=== PATIENT | female | born 1935 | race Caucasian/White ===

== ENCOUNTER 2016-07-13 12:52 | Inpatient (IN) | payer OTHER, MEDICAID ==
[~2016-07-13] VITALS: Ht 154.9 cm; Wt 106.4 kg
[2016-07-13 12:52] VITALS: BP 154/101; PULSE 121; RESP 22; TEMP 98.7; O2SAT 92
[~2016-07-13 12:52] MED LIST: APIX2.5T PO; APIX5TAB PO; ATOR10TA68 PO; CHOL100028 PO; FAMO40TA7 PO; FURO40TA5 PO; LEVE500T13 PO; LISI-600 PO; METO-442 PO; METR500T PO; NITSL SL; PENT400T2 PO; POTA20TA83 PO; RIFA550T5 PO; TEMA15CA51 PO
[2016-07-13] MEDS ORDERED: LEVOFLOXACIN 500 MG TABLET PO ONE (14:00)
[2016-07-13] MEDS ORDERED: FAMO40OR3 PO (14:17)
[2016-07-13] MEDS ORDERED: FURO20TA4 PO (14:17)
[2016-07-13] MEDS ORDERED: ATOR10TA68 PO (14:17)
[2016-07-13] MEDS ORDERED: PENT400T2 PO (14:17)
[2016-07-13] MEDS ORDERED: APIX5TAB PO (14:17)
[2016-07-13] MEDS ORDERED: LISI10TA5 PO (14:17)
[2016-07-13] MEDS ORDERED: LEVE500S PO (14:17)
[2016-07-13 14:22] LABS: BLOOD GAS COHb% 1.3 % (0.5-1.5); BLOOD GAS HHB 8.1 % (0.0-6.0)
[2016-07-13 14:40] LABS: MEAN CORPUSCULAR HGB CONC 33 % (32-36); MEAN CORPUSCULAR VOLUME 89 fL (79.0-98.0); WHITE BLOOD COUNT (AUTO) 7.4 K/uL (4.8-10.8)
[2016-07-13 14:51] LABS: BASOPHILS # (AUTO) 0.1 K/uL (0.0-0.2); BASOPHILS % (AUTO) 1.4 % (0.0-2.0); HEMATOCRIT 33.1 % (36-48); HEMOGLOBIN 10.9 g/dL (12.0-16.0); LYMPHOCYTES # (AUTO) 0.3 K/uL (1.0-5.5); LYMPHOCYTES % (AUTO) 4.5 % (20.5-51.5); MEAN CORPUSCULAR HEMOGLOBIN 29 pg (27-31); MONOCYTES # (AUTO) 0.3 K/uL (0.0-1.0); MONOCYTES % (AUTO) 3.4 % (1.7-9.3); NEUTROPHILS # (AUTO) 6.7 K/uL (1.8-7.7); NEUTROPHILS % (AUTO) 90.7 % (40.0-70.0); PLATELET COUNT (AUTO) 157 K/uL (130-430); RED BLOOD CELL COUNT(AUTO) 3.73 MIL/uL (4.2-6.2); RED CELL DISTRIBUTION WIDTH 16.9 % (9.0-15.0)
[2016-07-13 14:54] LABS: ANION GAP 12 (5-15); CALCIUM 9.8 mg/dL (8.4-11.0); CHLORIDE 103 mmol/L (98-107); CREATININE 1.64 mg/dL (0.55-1.30); GLUCOSE 229 mg/dL (70-99); POTASSIUM 3.7 mmol/L (3.5-5.1); SODIUM SERUM 141 mmol/L (136-145); UREA NITROGEN, BLOOD 41 mg/dL (8-21)
[2016-07-13 15:02] LABS: TOTAL BILIRUBIN 1.8 mg/dL (0.0-1.0)
[2016-07-13 15:03] LABS: ALANINE AMINOTRANSFERASE 29 U/L (12-78); ALBUMIN 3.5 g/dL (3.4-4.8); ASPARTATE AMINOTRANSFERASE 35 U/L (10-37); TOTAL PROTEIN, SERUM 7.3 g/dL (6.4-8.3)
[2016-07-13] MEDS ORDERED: NITROGLYCERIN 1 INCH (GM) OINT. TD ONE (16:30)
[2016-07-13] MEDS ORDERED: NITROGLYCERIN 0.4 MG TAB.SUBL SL ONE (16:30)
[2016-07-13] MEDS ORDERED: ALBUTEROL SULFATE 0.083% 2.5 MG/3 ML VIAL.NEB INH ONE (16:44)
[2016-07-13 17:13] VITALS: BP 128/64; PULSE 93; RESP 19; TEMP 98.2; O2SAT 93
[2016-07-13 17:15] VITALS: BP 128/64; PULSE 93; RESP 19; TEMP 98.2; O2SAT 93
[2016-07-13 17:26] VITALS: BP 128/64; PULSE 93
[2016-07-13] MEDS ORDERED: MILK OF MAGNESIA 30 ML UDC PO PRN (18:15)
[2016-07-13] MEDS ORDERED: NITROGLYCERIN 0.4 MG TAB.SUBL SL SCH (18:15)
[2016-07-13] MEDS ORDERED: LEVALBUTEROL HCL 0.63 MG/3 ML VIAL.NEB INH PRN (18:15)
[2016-07-13] MEDS ORDERED: GLUCOSE 15 GM GEL (in 37.5 GM TUBE) PO PRN ×2 (18:30)
[2016-07-13] MEDS ORDERED: DEXTROSE 50%-WATER 50 ML DISP.SYRIN IVP PRN ×2 (18:30)
[2016-07-13] MEDS ORDERED: ONDANSETRON HCL 4 MG/2 ML VIAL IVP PRN (18:30)
[2016-07-13] MEDS: ACETAMINOPHEN 325 MG TABLET PO PRN (19:00)
[2016-07-13] MEDS ORDERED: VANCOMYCIN HCL 600 MG in NS 250 ML IV SCH (20:00)
[2016-07-13] MEDS: LEVALBUTEROL HCL 0.63 MG/3 ML VIAL.NEB INH SCH (20:42)
[2016-07-13] MEDS: RIFAXIMIN 550 MG TABLET PO SCH (20:51)
[2016-07-13] MEDS: PENTOXIFYLLINE 400 MG TABLET.SA (TRENtal) PO SCH (20:51)
[2016-07-13] MEDS: CHOLECALCIFEROL (VITAMIN D3) 2,000 UNIT TABLET PO SCH (20:51)
[2016-07-13] MEDS: levETIRAcetam 500 MG TABLET PO SCH (20:51)
[2016-07-13] MEDS: TEMAZEPAM 15 MG CAPSULE PO SCH (20:51)
[2016-07-13] MEDS: metroNIDAZOLE 500 MG TABLET PO SCH (20:52)
[2016-07-13] MEDS: METOPROLOL TARTRATE 50 MG TABLET PO SCH (20:54)
[2016-07-13] MEDS: INSULIN REGULAR, HUMAN 100 UNITS/ML, 10 ML VIAL (novoLIN R) SUBCUT PRN (21:47)
[2016-07-14 00:58] VITALS: BP 103/58; PULSE 86; RESP 19; TEMP 96.6; O2SAT 99
[2016-07-14] MEDS: LEVALBUTEROL HCL 0.63 MG/3 ML VIAL.NEB INH SCH ×4 (01:41→20:18)
[2016-07-14 03:46] VITALS: BP 108/60; PULSE 88; RESP 19; TEMP 97.7; O2SAT 99
[2016-07-14 07:44] LABS: BASOPHILS % (AUTO) 0.1 % (0.0-2.0); HEMATOCRIT 27.2 % (36-48); HEMOGLOBIN 8.9 g/dL (12.0-16.0); LYMPHOCYTES # (AUTO) 0.8 K/uL (1.0-5.5); LYMPHOCYTES % (AUTO) 11.7 % (20.5-51.5); MEAN CORPUSCULAR HEMOGLOBIN 29 pg (27-31); MEAN CORPUSCULAR HGB CONC 33 % (32-36); MEAN CORPUSCULAR VOLUME 89 fL (79.0-98.0); MONOCYTES # (AUTO) 0.3 K/uL (0.0-1.0); NEUTROPHILS # (AUTO) 5.5 K/uL (1.8-7.7); NEUTROPHILS % (AUTO) 84.2 % (40.0-70.0); PLATELET COUNT (AUTO) 125 K/uL (130-430); RED BLOOD CELL COUNT(AUTO) 3.06 MIL/uL (4.2-6.2); RED CELL DISTRIBUTION WIDTH 16.5 % (9.0-15.0); WHITE BLOOD COUNT (AUTO) 6.6 K/uL (4.8-10.8)
[2016-07-14 08:13] LABS: ANION GAP 8 (5-15); CALCIUM 8.8 mg/dL (8.4-11.0); CHLORIDE 105 mmol/L (98-107); GLUCOSE 136 mg/dL (70-99); POTASSIUM 3.7 mmol/L (3.5-5.1); SODIUM SERUM 143 mmol/L (136-145); UREA NITROGEN, BLOOD 39 mg/dL (8-21)
[2016-07-14 08:15] VITALS: BP 120/75; PULSE 92; RESP 18; TEMP 97; O2SAT 97
[2016-07-14] MEDS: METOPROLOL TARTRATE 50 MG TABLET PO SCH ×2 (09:11→21:12)
[2016-07-14] MEDS: POTASSIUM CHLORIDE 20 MEQ TAB.PRT.SR PO SCH (09:12)
[2016-07-14] MEDS: LISINOPRIL 10 MG TABLET (PRINIVIL) PO SCH (09:13)
[2016-07-14] MEDS: ATORVASTATIN 10 MG TABLET PO SCH (09:13)
[2016-07-14] MEDS: PENTOXIFYLLINE 400 MG TABLET.SA (TRENtal) PO SCH ×2 (09:13→21:11)
[2016-07-14] MEDS: levETIRAcetam 500 MG TABLET PO SCH ×2 (09:13→21:10)
[2016-07-14] MEDS: FUROSEMIDE 40 MG TABLET PO SCH (09:14)
[2016-07-14] MEDS: RIFAXIMIN 550 MG TABLET PO SCH ×2 (09:14→21:10)
[2016-07-14] MEDS: CHOLECALCIFEROL (VITAMIN D3) 2,000 UNIT TABLET PO SCH ×2 (09:14→21:11)
[2016-07-14] MEDS: metroNIDAZOLE 500 MG TABLET PO SCH (09:14)
[2016-07-14] MEDS: FAMOTIDINE 20 MG TABLET PO SCH (09:15)
[2016-07-14 12:00] VITALS: BP 117/84; PULSE 77; RESP 18; TEMP 97.3; O2SAT 96
[2016-07-14] MEDS ORDERED: LEVOFLOXACIN 250 MG/D5W 50 ML IV ONE (13:00)
[2016-07-14 16:00] VITALS: BP 111/66; PULSE 85; RESP 17; TEMP 98.1; O2SAT 99
[2016-07-14] MEDS: metroNIDAZOLE 250 mg/NS 50 ML IV SCH (18:00)
[2016-07-14 19:40] VITALS: BP 116/71; PULSE 82; RESP 16; TEMP 98; O2SAT 99
[2016-07-14] MEDS: IPRATROPIUM BROM 0.5 MG/2.5 ML VIAL.NEB (ATROVENT) INH SCH (20:18)
[2016-07-14] MEDS: LACTOBACILLUS RHAMNOSUS GG 1 CAP CAPSULE PO SCH (21:10)
[2016-07-14] MEDS: TEMAZEPAM 15 MG CAPSULE PO SCH (21:10)
[2016-07-15 00:05] VITALS: BP 124/67; PULSE 92; RESP 18; TEMP 98; O2SAT 98
[2016-07-15] MEDS: metroNIDAZOLE 250 mg/NS 50 ML IV SCH ×4 (00:07→21:34)
[2016-07-15] MEDS: LEVALBUTEROL HCL 0.63 MG/3 ML VIAL.NEB INH SCH ×4 (01:00→19:45)
[2016-07-15] MEDS: IPRATROPIUM BROM 0.5 MG/2.5 ML VIAL.NEB (ATROVENT) INH SCH ×4 (01:00→19:45)
[2016-07-15 04:20] VITALS: BP 108/59; PULSE 78; RESP 18; TEMP 97.4; O2SAT 99
[2016-07-15] MEDS: ACETAMINOPHEN 325 MG TABLET PO PRN (06:42)
[2016-07-15 08:00] VITALS: BP 130/87; PULSE 95; RESP 17; TEMP 96.9; O2SAT 100
[2016-07-15] MEDS: FUROSEMIDE 40 MG TABLET PO SCH (09:00)
[2016-07-15] MEDS: METOPROLOL TARTRATE 50 MG TABLET PO SCH ×2 (09:19→20:49)
[2016-07-15] MEDS: RIFAXIMIN 550 MG TABLET PO SCH ×2 (09:20→20:50)
[2016-07-15] MEDS: POTASSIUM CHLORIDE 20 MEQ TAB.PRT.SR PO SCH (09:20)
[2016-07-15] MEDS: PENTOXIFYLLINE 400 MG TABLET.SA (TRENtal) PO SCH ×2 (09:20→20:49)
[2016-07-15] MEDS: levETIRAcetam 500 MG TABLET PO SCH ×2 (09:20→20:50)
[2016-07-15] MEDS: FAMOTIDINE 20 MG TABLET PO SCH (09:21)
[2016-07-15] MEDS: ATORVASTATIN 10 MG TABLET PO SCH (09:22)
[2016-07-15] MEDS: LACTOBACILLUS RHAMNOSUS GG 1 CAP CAPSULE PO SCH ×2 (09:22→20:50)
[2016-07-15] MEDS: LISINOPRIL 10 MG TABLET (PRINIVIL) PO SCH (09:22)
[2016-07-15] MEDS: CHOLECALCIFEROL (VITAMIN D3) 2,000 UNIT TABLET PO SCH ×2 (09:22→20:50)
[2016-07-15] MEDS: LEVOFLOXACIN 250 MG/D5W 50 ML IV SCH (09:23)
[2016-07-15] MEDS ORDERED: methylPREDNISolone SOD SUCC 40 MG/ML VIAL IVP ONE (09:30)
[2016-07-15] MEDS ORDERED: FUROSEMIDE 20 MG/2 ML VIAL IVP ONE (09:30)
[2016-07-15 09:38] LABS: BASOPHILS % (AUTO) 0.1 % (0.0-2.0); EOSINOPHILS % (AUTO) 0.8 % (0.0-4.0); HEMATOCRIT 29.2 % (36-48); HEMOGLOBIN 9.4 g/dL (12.0-16.0); LYMPHOCYTES # (AUTO) 0.9 K/uL (1.0-5.5); LYMPHOCYTES % (AUTO) 15.5 % (20.5-51.5); MEAN CORPUSCULAR HEMOGLOBIN 29 pg (27-31); MEAN CORPUSCULAR HGB CONC 32 % (32-36); MEAN CORPUSCULAR VOLUME 89 fL (79.0-98.0); MONOCYTES # (AUTO) 0.3 K/uL (0.0-1.0); MONOCYTES % (AUTO) 6.2 % (1.7-9.3); NEUTROPHILS # (AUTO) 4.4 K/uL (1.8-7.7); NEUTROPHILS % (AUTO) 77.4 % (40.0-70.0); PLATELET COUNT (AUTO) 141 K/uL (130-430); RED BLOOD CELL COUNT(AUTO) 3.28 MIL/uL (4.2-6.2); RED CELL DISTRIBUTION WIDTH 16.6 % (9.0-15.0); WHITE BLOOD COUNT (AUTO) 5.6 K/uL (4.8-10.8)
[2016-07-15] MEDS ORDERED: guaiFENesin ER 600 MG TAB PO ONE (09:45)
[2016-07-15 09:51] LABS: ANION GAP 8 (5-15); CALCIUM 9.4 mg/dL (8.4-11.0); CHLORIDE 106 mmol/L (98-107); GLUCOSE 115 mg/dL (70-99); POTASSIUM 4.3 mmol/L (3.5-5.1); SODIUM SERUM 144 mmol/L (136-145); UREA NITROGEN, BLOOD 43 mg/dL (8-21)
[2016-07-15 12:00] VITALS: BP 121/61; PULSE 80; RESP 17; TEMP 97.3; O2SAT 100
[2016-07-15 16:25] VITALS: BP 133/69; PULSE 90; RESP 21; TEMP 98.9; O2SAT 100
[2016-07-15 19:30] VITALS: BP 131/78; PULSE 92; RESP 16; RESP 18; TEMP 97.1; TEMP 98.1; O2SAT 95
[2016-07-15] MEDS: APIXABAN 2.5 MG TABLET PO SCH (20:50)
[2016-07-15] MEDS: TEMAZEPAM 15 MG CAPSULE PO SCH (20:51)
[2016-07-15] MEDS: guaiFENesin ER 600 MG TAB PO SCH (20:51)
[2016-07-16] VITALS (7 sets, daily range): BP systolic 111–128; BP diastolic 61–71; PULSE 78–91; RESP 16–20; TEMP 97.1–97.9; O2SAT 98–100
[2016-07-16] MEDS: LEVALBUTEROL HCL 0.63 MG/3 ML VIAL.NEB INH SCH ×4 (00:30→19:47)
[2016-07-16] MEDS: IPRATROPIUM BROM 0.5 MG/2.5 ML VIAL.NEB (ATROVENT) INH SCH ×4 (00:30→19:46)
[2016-07-16] MEDS: metroNIDAZOLE 250 mg/NS 50 ML IV SCH ×3 (05:10→21:56)
[2016-07-16 07:45] LABS: BASOPHILS % (AUTO) 0.1 % (0.0-2.0); HEMOGLOBIN 10.6 g/dL (12.0-16.0); LYMPHOCYTES # (AUTO) 1.1 K/uL (1.0-5.5); LYMPHOCYTES % (AUTO) 14.2 % (20.5-51.5); MEAN CORPUSCULAR HEMOGLOBIN 29 pg (27-31); MEAN CORPUSCULAR HGB CONC 32 % (32-36); MEAN CORPUSCULAR VOLUME 91 fL (79.0-98.0); MONOCYTES # (AUTO) 0.4 K/uL (0.0-1.0); MONOCYTES % (AUTO) 5.5 % (1.7-9.3); NEUTROPHILS # (AUTO) 6.4 K/uL (1.8-7.7); NEUTROPHILS % (AUTO) 80.2 % (40.0-70.0); PLATELET COUNT (AUTO) 157 K/uL (130-430); RED BLOOD CELL COUNT(AUTO) 3.64 MIL/uL (4.2-6.2); RED CELL DISTRIBUTION WIDTH 16.3 % (9.0-15.0); WHITE BLOOD COUNT (AUTO) 7.9 K/uL (4.8-10.8)
[2016-07-16 08:20] LABS: ANION GAP 7 (5-15); CALCIUM 9.9 mg/dL (8.4-11.0); CHLORIDE 105 mmol/L (98-107); CREATININE 1.48 mg/dL (0.55-1.30); GLUCOSE 117 mg/dL (70-99); POTASSIUM 4.4 mmol/L (3.5-5.1); SODIUM SERUM 142 mmol/L (136-145); UREA NITROGEN, BLOOD 43 mg/dL (8-21)
[2016-07-16] MEDS: LACTOBACILLUS RHAMNOSUS GG 1 CAP CAPSULE PO SCH ×2 (09:34→20:17)
[2016-07-16] MEDS: APIXABAN 2.5 MG TABLET PO SCH ×2 (09:34→20:17)
[2016-07-16] MEDS: LEVOFLOXACIN 250 MG/D5W 50 ML IV SCH (09:34)
[2016-07-16] MEDS: RIFAXIMIN 550 MG TABLET PO SCH ×2 (09:35→20:19)
[2016-07-16] MEDS: ATORVASTATIN 10 MG TABLET PO SCH (09:36)
[2016-07-16] MEDS: METOPROLOL TARTRATE 50 MG TABLET PO SCH ×2 (09:36→20:18)
[2016-07-16] MEDS: PENTOXIFYLLINE 400 MG TABLET.SA (TRENtal) PO SCH ×2 (09:37→20:19)
[2016-07-16] MEDS: POTASSIUM CHLORIDE 20 MEQ TAB.PRT.SR PO SCH (09:37)
[2016-07-16] MEDS: LISINOPRIL 10 MG TABLET (PRINIVIL) PO SCH (09:37)
[2016-07-16] MEDS: CHOLECALCIFEROL (VITAMIN D3) 2,000 UNIT TABLET PO SCH ×2 (09:38→20:17)
[2016-07-16] MEDS: guaiFENesin ER 600 MG TAB PO SCH ×2 (09:39→20:19)
[2016-07-16] MEDS: levETIRAcetam 500 MG TABLET PO SCH ×2 (09:39→20:17)
[2016-07-16] MEDS: FAMOTIDINE 20 MG TABLET PO SCH (09:39)
[2016-07-16] MEDS: FUROSEMIDE 40 MG TABLET PO SCH (09:40)
[2016-07-16] MEDS ORDERED: methylPREDNISolone SOD SUCC/PF 62.5 MG/ML VIAL IVP ONE (13:15)
[2016-07-16] MEDS: ACETAMINOPHEN 325 MG TABLET PO PRN (13:28)
[2016-07-16] MEDS: TEMAZEPAM 15 MG CAPSULE PO SCH (20:20)
[2016-07-17] VITALS: BP 115/68; PULSE 60; RESP 18; TEMP 97.6; O2SAT 91
[2016-07-17] MEDS: IPRATROPIUM BROM 0.5 MG/2.5 ML VIAL.NEB (ATROVENT) INH SCH ×4 (01:00→19:00)
[2016-07-17] MEDS: LEVALBUTEROL HCL 0.63 MG/3 ML VIAL.NEB INH SCH ×4 (01:00→19:00)
[2016-07-17 04:49] VITALS: BP 120/66; PULSE 86; RESP 18; TEMP 98.2; O2SAT 99
[2016-07-17] MEDS: metroNIDAZOLE 250 mg/NS 50 ML IV SCH ×3 (06:06→22:34)
[2016-07-17] MEDS: INSULIN REGULAR, HUMAN 100 UNITS/ML, 10 ML VIAL (novoLIN R) SUBCUT PRN ×2 (06:16→22:48)
[2016-07-17 06:44] LABS: ANION GAP 8 (5-15); CALCIUM 9.1 mg/dL (8.4-11.0); CHLORIDE 104 mmol/L (98-107); CREATININE 1.56 mg/dL (0.55-1.30); GLUCOSE 207 mg/dL (70-99); POTASSIUM 4.8 mmol/L (3.5-5.1); SODIUM SERUM 141 mmol/L (136-145); UREA NITROGEN, BLOOD 49 mg/dL (8-21)
[2016-07-17 06:45] LABS: HEMATOCRIT 30.1 % (36-48); HEMOGLOBIN 9.5 g/dL (12.0-16.0); LYMPHOCYTES # (AUTO) 0.5 K/uL (1.0-5.5); LYMPHOCYTES % (AUTO) 10.6 % (20.5-51.5); MEAN CORPUSCULAR HEMOGLOBIN 29 pg (27-31); MEAN CORPUSCULAR HGB CONC 32 % (32-36); MEAN CORPUSCULAR VOLUME 90 fL (79.0-98.0); MONOCYTES # (AUTO) 0.1 K/uL (0.0-1.0); MONOCYTES % (AUTO) 1.8 % (1.7-9.3); NEUTROPHILS # (AUTO) 4.3 K/uL (1.8-7.7); NEUTROPHILS % (AUTO) 87.6 % (40.0-70.0); PLATELET COUNT (AUTO) 128 K/uL (130-430); RED BLOOD CELL COUNT(AUTO) 3.34 MIL/uL (4.2-6.2); RED CELL DISTRIBUTION WIDTH 16.5 % (9.0-15.0); WHITE BLOOD COUNT (AUTO) 4.9 K/uL (4.8-10.8)
[2016-07-17 08:00] VITALS: BP 139/76; PULSE 89; RESP 17; TEMP 97.3; O2SAT 100
[2016-07-17] MEDS: CHOLECALCIFEROL (VITAMIN D3) 2,000 UNIT TABLET PO SCH ×2 (09:10→22:36)
[2016-07-17] MEDS: ATORVASTATIN 10 MG TABLET PO SCH (09:10)
[2016-07-17] MEDS: POTASSIUM CHLORIDE 20 MEQ TAB.PRT.SR PO SCH (09:11)
[2016-07-17] MEDS: levETIRAcetam 500 MG TABLET PO SCH ×2 (09:11→22:34)
[2016-07-17] MEDS: FAMOTIDINE 20 MG TABLET PO SCH (09:11)
[2016-07-17] MEDS: APIXABAN 2.5 MG TABLET PO SCH ×2 (09:11→22:36)
[2016-07-17] MEDS: guaiFENesin ER 600 MG TAB PO SCH ×2 (09:11→22:35)
[2016-07-17] MEDS: RIFAXIMIN 550 MG TABLET PO SCH ×2 (09:11→22:36)
[2016-07-17] MEDS: PENTOXIFYLLINE 400 MG TABLET.SA (TRENtal) PO SCH ×2 (09:11→22:35)
[2016-07-17] MEDS: METOPROLOL TARTRATE 50 MG TABLET PO SCH ×2 (09:12→22:35)
[2016-07-17] MEDS: FUROSEMIDE 40 MG TABLET PO SCH (09:13)
[2016-07-17] MEDS: LACTOBACILLUS RHAMNOSUS GG 1 CAP CAPSULE PO SCH ×2 (09:14→22:36)
[2016-07-17] MEDS: LEVOFLOXACIN 250 MG/D5W 50 ML IV SCH (09:14)
[2016-07-17] MEDS: LISINOPRIL 10 MG TABLET (PRINIVIL) PO SCH (09:14)
[2016-07-17 11:39] VITALS: BP 134/73; PULSE 88; RESP 18; TEMP 97.2; O2SAT 99
[2016-07-17 16:16] VITALS: BP 112/60; PULSE 89; RESP 18; TEMP 96.9; O2SAT 99
[2016-07-17 21:17] VITALS: BP 114/68; PULSE 87; RESP 18; TEMP 97.6; O2SAT 97
[2016-07-17] MEDS: TEMAZEPAM 15 MG CAPSULE PO SCH (22:36)
[2016-07-18 00:54] VITALS: BP 137/71; PULSE 92; RESP 17; TEMP 97.8; O2SAT 100
[2016-07-18] MEDS: LEVALBUTEROL HCL 0.63 MG/3 ML VIAL.NEB INH SCH ×4 (01:00→19:00)
[2016-07-18] MEDS: IPRATROPIUM BROM 0.5 MG/2.5 ML VIAL.NEB (ATROVENT) INH SCH ×4 (01:00→19:00)
[2016-07-18 04:00] VITALS: BP 132/68; PULSE 89; RESP 16; TEMP 98.4; O2SAT 100
[2016-07-18] MEDS: metroNIDAZOLE 250 mg/NS 50 ML IV SCH ×3 (06:56→22:30)
[2016-07-18 07:34] LABS: BASOPHILS % (AUTO) 0.4 % (0.0-2.0); EOSINOPHILS % (AUTO) 0.6 % (0.0-4.0); HEMATOCRIT 31.3 % (36-48); HEMOGLOBIN 10.1 g/dL (12.0-16.0); LYMPHOCYTES # (AUTO) 1.2 K/uL (1.0-5.5); LYMPHOCYTES % (AUTO) 22.7 % (20.5-51.5); MEAN CORPUSCULAR HEMOGLOBIN 29 pg (27-31); MEAN CORPUSCULAR HGB CONC 32 % (32-36); MEAN CORPUSCULAR VOLUME 89 fL (79.0-98.0); MONOCYTES # (AUTO) 0.5 K/uL (0.0-1.0); MONOCYTES % (AUTO) 8.4 % (1.7-9.3); NEUTROPHILS # (AUTO) 3.7 K/uL (1.8-7.7); NEUTROPHILS % (AUTO) 67.9 % (40.0-70.0); PLATELET COUNT (AUTO) 133 K/uL (130-430); RED BLOOD CELL COUNT(AUTO) 3.51 MIL/uL (4.2-6.2); RED CELL DISTRIBUTION WIDTH 16.1 % (9.0-15.0); WHITE BLOOD COUNT (AUTO) 5.4 K/uL (4.8-10.8)
[2016-07-18 08:00] VITALS: BP 135/68; PULSE 92; RESP 20; TEMP 97.6; O2SAT 99
[2016-07-18 08:05] LABS: ANION GAP 7 (5-15); CALCIUM 9.1 mg/dL (8.4-11.0); CHLORIDE 106 mmol/L (98-107); CREATININE 1.53 mg/dL (0.55-1.30); GLUCOSE 107 mg/dL (70-99); POTASSIUM 4.6 mmol/L (3.5-5.1); SODIUM SERUM 143 mmol/L (136-145); UREA NITROGEN, BLOOD 44 mg/dL (8-21)
[2016-07-18] MEDS: FAMOTIDINE 20 MG TABLET PO SCH (09:09)
[2016-07-18] MEDS: LACTOBACILLUS RHAMNOSUS GG 1 CAP CAPSULE PO SCH ×2 (09:09→22:11)
[2016-07-18] MEDS: guaiFENesin ER 600 MG TAB PO SCH ×2 (09:09→22:04)
[2016-07-18] MEDS: PENTOXIFYLLINE 400 MG TABLET.SA (TRENtal) PO SCH ×2 (09:09→22:11)
[2016-07-18] MEDS: POTASSIUM CHLORIDE 20 MEQ TAB.PRT.SR PO SCH (09:09)
[2016-07-18] MEDS: levETIRAcetam 500 MG TABLET PO SCH ×2 (09:09→22:11)
[2016-07-18] MEDS: RIFAXIMIN 550 MG TABLET PO SCH ×2 (09:09→22:12)
[2016-07-18] MEDS: ATORVASTATIN 10 MG TABLET PO SCH (09:10)
[2016-07-18] MEDS: LISINOPRIL 10 MG TABLET (PRINIVIL) PO SCH (09:10)
[2016-07-18] MEDS: APIXABAN 2.5 MG TABLET PO SCH ×2 (09:10→22:13)
[2016-07-18] MEDS: CHOLECALCIFEROL (VITAMIN D3) 2,000 UNIT TABLET PO SCH ×2 (09:10→22:05)
[2016-07-18] MEDS: FUROSEMIDE 40 MG TABLET PO SCH (09:11)
[2016-07-18] MEDS: METOPROLOL TARTRATE 50 MG TABLET PO SCH ×2 (09:12→22:29)
[2016-07-18] MEDS: LEVOFLOXACIN 250 MG/D5W 50 ML IV SCH (09:23)
[2016-07-18] MEDS: ACETAMINOPHEN 325 MG TABLET PO PRN (11:11)
[2016-07-18 12:30] VITALS: BP 130/70; PULSE 87; RESP 17; TEMP 97.6; O2SAT 92
[2016-07-18] MEDS ORDERED: BARIUM SULFATE 135 ML SUSP.RECON (E-Z-HD) PO ONE (13:23)
[2016-07-18 14:37] VITALS: Ht 154.9 cm; Wt 106.4 kg
[2016-07-18 16:30] VITALS: BP 141/75; PULSE 91; RESP 18; TEMP 97.1; O2SAT 92
[2016-07-18 19:51] VITALS: BP 138/72; PULSE 87; RESP 17; TEMP 97.4; O2SAT 100
[2016-07-18] MEDS: TEMAZEPAM 15 MG CAPSULE PO SCH (22:04)
[2016-07-19] VITALS (7 sets, daily range): BP systolic 119–136; BP diastolic 51–75; PULSE 67–88; RESP 16–19; TEMP 96.5–98.5; O2SAT 93–100
[2016-07-19] MEDS: LEVALBUTEROL HCL 0.63 MG/3 ML VIAL.NEB INH SCH ×4 (01:00→19:57)
[2016-07-19] MEDS: IPRATROPIUM BROM 0.5 MG/2.5 ML VIAL.NEB (ATROVENT) INH SCH ×4 (01:00→19:57)
[2016-07-19] MEDS: metroNIDAZOLE 250 mg/NS 50 ML IV SCH ×3 (05:37→22:28)
[2016-07-19 08:18] LABS: ANION GAP 8 (5-15); CALCIUM 9.3 mg/dL (8.4-11.0); CHLORIDE 105 mmol/L (98-107); CREATININE 1.39 mg/dL (0.55-1.30); GLUCOSE 93 mg/dL (70-99); POTASSIUM 4.6 mmol/L (3.5-5.1); SODIUM SERUM 143 mmol/L (136-145); UREA NITROGEN, BLOOD 48 mg/dL (8-21)
[2016-07-19] MEDS: LEVOFLOXACIN 250 MG/D5W 50 ML IV SCH (08:48)
[2016-07-19] MEDS: POTASSIUM CHLORIDE 20 MEQ TAB.PRT.SR PO SCH (08:48)
[2016-07-19] MEDS: guaiFENesin ER 600 MG TAB PO SCH ×2 (08:49→20:22)
[2016-07-19] MEDS: levETIRAcetam 500 MG TABLET PO SCH ×2 (08:49→20:23)
[2016-07-19] MEDS: CHOLECALCIFEROL (VITAMIN D3) 2,000 UNIT TABLET PO SCH ×2 (08:49→20:22)
[2016-07-19] MEDS: FAMOTIDINE 20 MG TABLET PO SCH (08:49)
[2016-07-19] MEDS: APIXABAN 2.5 MG TABLET PO SCH ×2 (08:49→20:22)
[2016-07-19] MEDS: LACTOBACILLUS RHAMNOSUS GG 1 CAP CAPSULE PO SCH (08:49)
[2016-07-19] MEDS: RIFAXIMIN 550 MG TABLET PO SCH ×2 (08:49→20:23)
[2016-07-19] MEDS: FUROSEMIDE 40 MG TABLET PO SCH (08:50)
[2016-07-19] MEDS: ATORVASTATIN 10 MG TABLET PO SCH (08:50)
[2016-07-19] MEDS: PENTOXIFYLLINE 400 MG TABLET.SA (TRENtal) PO SCH ×2 (08:50→20:23)
[2016-07-19] MEDS: LISINOPRIL 10 MG TABLET (PRINIVIL) PO SCH (08:51)
[2016-07-19] MEDS: METOPROLOL TARTRATE 50 MG TABLET PO SCH ×2 (08:51→20:25)
[2016-07-19] MEDS: ACETAMINOPHEN 325 MG TABLET PO PRN (16:49)
[2016-07-19] MEDS: TEMAZEPAM 15 MG CAPSULE PO SCH (20:23)
[2016-07-20 00:03] VITALS: BP 126/74; PULSE 78; RESP 18; TEMP 97.8; O2SAT 97
[2016-07-20] MEDS: LEVALBUTEROL HCL 0.63 MG/3 ML VIAL.NEB INH SCH ×4 (01:00→19:33)
[2016-07-20] MEDS: IPRATROPIUM BROM 0.5 MG/2.5 ML VIAL.NEB (ATROVENT) INH SCH ×4 (01:00→19:33)
[2016-07-20 03:44] VITALS: BP 130/60; PULSE 68; RESP 18; TEMP 97.6; O2SAT 100
[2016-07-20] MEDS: metroNIDAZOLE 250 mg/NS 50 ML IV SCH ×3 (05:28→21:36)
[2016-07-20 08:33] VITALS: BP 141/69; PULSE 70; RESP 18; TEMP 97.6; O2SAT 99
[2016-07-20] MEDS: METOPROLOL TARTRATE 50 MG TABLET PO SCH ×2 (09:32→21:37)
[2016-07-20] MEDS: POTASSIUM CHLORIDE 20 MEQ TAB.PRT.SR PO SCH (09:33)
[2016-07-20] MEDS: APIXABAN 2.5 MG TABLET PO SCH ×2 (09:33→21:38)
[2016-07-20] MEDS: ATORVASTATIN 10 MG TABLET PO SCH (09:33)
[2016-07-20] MEDS: levETIRAcetam 500 MG TABLET PO SCH ×2 (09:33→21:36)
[2016-07-20] MEDS: guaiFENesin ER 600 MG TAB PO SCH ×2 (09:33→21:39)
[2016-07-20] MEDS: FAMOTIDINE 20 MG TABLET PO SCH (09:33)
[2016-07-20] MEDS: LISINOPRIL 10 MG TABLET (PRINIVIL) PO SCH (09:33)
[2016-07-20] MEDS: FUROSEMIDE 40 MG TABLET PO SCH (09:34)
[2016-07-20] MEDS: CHOLECALCIFEROL (VITAMIN D3) 2,000 UNIT TABLET PO SCH ×2 (09:34→21:38)
[2016-07-20] MEDS: RIFAXIMIN 550 MG TABLET PO SCH ×2 (09:34→21:36)
[2016-07-20] MEDS: PENTOXIFYLLINE 400 MG TABLET.SA (TRENtal) PO SCH ×2 (09:34→21:39)
[2016-07-20] MEDS: LEVOFLOXACIN 250 MG/D5W 50 ML IV SCH (09:35)
[2016-07-20 12:00] VITALS: BP 124/55; PULSE 79; RESP 20; TEMP 96; O2SAT 90
[2016-07-20 16:16] VITALS: BP 143/65; PULSE 75; RESP 19; TEMP 98.9; O2SAT 95
[2016-07-20 19:55] VITALS: BP 121/57; PULSE 87; RESP 20; TEMP 98.5; O2SAT 95
[2016-07-20] MEDS: TEMAZEPAM 15 MG CAPSULE PO SCH (21:39)
[2016-07-21] VITALS (7 sets, daily range): BP systolic 116–123; BP diastolic 59–75; PULSE 61–93; RESP 18–20; TEMP 96.8–99; O2SAT 91–99
[2016-07-21] MEDS: LEVALBUTEROL HCL 0.63 MG/3 ML VIAL.NEB INH SCH ×3 (01:00→13:00)
[2016-07-21] MEDS: IPRATROPIUM BROM 0.5 MG/2.5 ML VIAL.NEB (ATROVENT) INH SCH ×3 (01:00→13:00)
[2016-07-21] MEDS: metroNIDAZOLE 250 mg/NS 50 ML IV SCH (06:00)
[2016-07-21] MEDS: METOPROLOL TARTRATE 50 MG TABLET PO SCH (08:35)
[2016-07-21] MEDS: LEVOFLOXACIN 250 MG/D5W 50 ML IV SCH (08:35)
[2016-07-21] MEDS: ATORVASTATIN 10 MG TABLET PO SCH (08:36)
[2016-07-21] MEDS: guaiFENesin ER 600 MG TAB PO SCH (08:36)
[2016-07-21] MEDS: levETIRAcetam 500 MG TABLET PO SCH (08:36)
[2016-07-21] MEDS: RIFAXIMIN 550 MG TABLET PO SCH (08:36)
[2016-07-21] MEDS: POTASSIUM CHLORIDE 20 MEQ TAB.PRT.SR PO SCH (08:36)
[2016-07-21] MEDS: PENTOXIFYLLINE 400 MG TABLET.SA (TRENtal) PO SCH (08:36)
[2016-07-21] MEDS: FUROSEMIDE 40 MG TABLET PO SCH (08:37)
[2016-07-21] MEDS: FAMOTIDINE 20 MG TABLET PO SCH (08:37)
[2016-07-21] MEDS: APIXABAN 2.5 MG TABLET PO SCH (08:37)
[2016-07-21] MEDS: LISINOPRIL 10 MG TABLET (PRINIVIL) PO SCH (08:37)
[2016-07-21] MEDS: CHOLECALCIFEROL (VITAMIN D3) 2,000 UNIT TABLET PO SCH (08:37)
[2016-07-21] MEDS: INSULIN REGULAR, HUMAN 100 UNITS/ML, 10 ML VIAL (novoLIN R) SUBCUT PRN (11:58)
[2016-07-21] MEDS ORDERED: LEVO250T20 PO (15:56)
[2016-07-21] MEDS ORDERED: FLA250 PO (15:57)
== END 2016-07-21 17:10 | disposition home health service (06) | DRG 177 ==
LOC: SED 12:52 → STU 16:43
PROVIDERS: ADMIT Family Medicine; ATTEND Family Medicine
DX: J69.0 Pneumonitis due to inhalation of food and vomit (principal); N17.0 Acute kidney failure with tubular necrosis; I50.43 Acute on chronic combined systolic (congestive) and diastolic (congestive) heart failure; J96.90 Respiratory failure, unspecified, unspecified whether with hypoxia or hypercapnia; I13.0 Hypertensive heart and chronic kidney disease with heart failure and stage 1 through stage 4 chronic kidney disease, or unspecified chronic kidney disease; I48.0 Paroxysmal atrial fibrillation; I25.10 Atherosclerotic heart disease of native coronary artery without angina pectoris; J44.9 Chronic obstructive pulmonary disease, unspecified; K21.9 Gastro-esophageal reflux disease without esophagitis; G40.909 Epilepsy, unspecified, not intractable, without status epilepticus; F03.90 Unspecified dementia, unspecified severity, without behavioral disturbance, psychotic disturbance, mood disturbance, and anxiety; E78.5 Hyperlipidemia, unspecified; D64.9 Anemia, unspecified; E11.65 Type 2 diabetes mellitus with hyperglycemia; N18.3 Chronic kidney disease, stage 3 (moderate); K72.90 Hepatic failure, unspecified without coma; I27.2 Other secondary pulmonary hypertension; I34.0 Nonrheumatic mitral (valve) insufficiency; I35.1 Nonrheumatic aortic (valve) insufficiency; I07.1 Rheumatic tricuspid insufficiency; Z96.651 Presence of right artificial knee joint; Z88.6 Allergy status to analgesic agent; Z95.5 Presence of coronary angioplasty implant and graft; Z79.01 Long term (current) use of anticoagulants; Z82.49 Family history of ischemic heart disease and other diseases of the circulatory system; Z86.718 Personal history of other venous thrombosis and embolism; Z86.73 Personal history of transient ischemic attack (TIA), and cerebral infarction without residual deficits; Z87.891 Personal history of nicotine dependence; Z88.0 Allergy status to penicillin; Z83.3 Family history of diabetes mellitus; Z90.49 Acquired absence of other specified parts of digestive tract; Z79.899 Other long term (current) drug therapy
CPT/HCPCS: 36415; 36600; 71010; 71250-TC; 74230; 80048; 80053; 82803-TC; 82962; 83605; 83880; 84484; 85025; 86738; 87040-TC; 87070-TC; 87205-TC; 87449; 92610-GN; 92611-GN; 93005; 93306; 94640; 94760; 97110-GP; 97116-GP; 97530-GP; 99291; J1030; J1815; J1940; J1956; J2930; J3370; J3490; J7050

== ENCOUNTER 2016-09-01 21:07 | Inpatient (IN) | payer OTHER, MEDICAID ==
[~2016-09-01] VITALS: Ht 152.4 cm; Wt 61.7 kg
[~2016-09-01 21:07] MED LIST changes: +FAMO40OR3 PO; +FLA250 PO; +FURO20TA4 PO; +LEVE500S PO; +LEVO250T20 PO; +LISI10TA5 PO
[2016-09-01 21:20] VITALS: BP 104/64; PULSE 88; RESP 16; TEMP 97.4; O2SAT 97
--- NOTE | 2016-09-01 22:33 | NUR ---
PT. TO BED 8 REPORT RECEIVED FROM VIGNESH CRISOSTOMO, BED DOWN SIDERAILS UP, DAUGHTER AT BEDSIDE
--- NOTE | 2016-09-01 22:34 | NUR ---
PT. TO ER AAOX[address] SENT [address] DR. WILLIAMSON FOR CONFIRMED C-DIFF, PER DAUGHTER DIARRHEA HAS BEEN THERE FOR ABOUT A 1 MONTH NOW, ON TREATMENT BUT DIARRHEA HAS WORSEN OVER PAST COUPLE DAYS, C/O LEFT AND RIGHT HAND PAIN 01/05, DENIES CP DENIES SOB, FOLLOWS COMMANDS
--- NOTE | 2016-09-01 22:42 | NUR ---
PT. C/O ABDOMINAL PAIN 12/05
--- NOTE | 2016-09-01 22:56 | NUR ---
# 22 gauge angiocath placed to LH. Use of asceptic technique. Opsite placed over site. Blood return noted. Flushed with 10 cc of normal saline. No evidence of infiltration noted. Patient tolerated well.
--- NOTE | 2016-09-01 23:00 | NUR ---
Care and report recieved from Mae CRISOSTOMO. Pt has been having lower abd pain with nausea and diarrhea. Pt states she cannot hold anything down. Pt looks uncomfortable and rates her pain 8/10. Will continue to monitor. No other injuries or complaints mentioned/noted. No distress noted.
[2016-09-01] MEDS ORDERED: GLUXR500 PO (23:42)
[2016-09-01] MEDS ORDERED: HYDR-1189 PO (23:42)
[2016-09-01] MEDS ORDERED: DIOS630T PO (23:42)
[2016-09-02] MEDS ORDERED: NACL 0.9% 1,000 ML IV ONE (00:03)
[2016-09-02] MEDS ORDERED: levETIRAcetam 500 MG TABLET PO ONE (00:15)
[2016-09-02] MEDS ORDERED: RIFAXIMIN 550 MG TABLET PO ONE (00:15)
[2016-09-02] MEDS ORDERED: ACETAMINOPHEN 325 MG TABLET PO ONE (00:15)
[2016-09-02] MEDS ORDERED: PENTOXIFYLLINE 400 MG TABLET.SA (TRENtal) PO ONE (00:15)
[2016-09-02] MEDS ORDERED: METOPROLOL TARTRATE 25 MG TABLET PO ONE (00:15)
[2016-09-02] MEDS ORDERED: APIXABAN 2.5 MG TABLET PO ONE (00:15)
--- NOTE | 2016-09-02 00:30 | NUR ---
Per housekeeping and laundry team leader, pt will recieve the rest of her home meds on floor due to not having medication readily available in [facility].
--- NOTE | 2016-09-02 01:00 | NUR ---
Pt unable to urinate enough for a viable urine sample. Dr. Nelson made aware.
[2016-09-02] MEDS ORDERED: ACETAMINOPHEN 325 MG TABLET ONE (01:43)
--- NOTE | 2016-09-02 02:06 | NUR ---
PT DAUGHTER REFUSING TO HAVE BLOOD DRAW AT THIS TIME. STATED SHE WANTED TO WAIT UNTIL PATIENT WAS ADMITTED AND TRANSFERRED TO FLOOR FOR BLOOD DRAW. OFFERED TO CALL [employer] OR [employer] TENANT FARMER TO DRAW AND EXPLAINED THEY ARE THE ONES WHO DRAW ON THE FLOOR. DAUGHTER STILL REFUSING STATING MOTHER IS CRYING IN PAIN. PATIENT NOT OBSERVED TO BE CRYING AT THIS TIME. DAUGHTER REQUESTING TO SPEAK TO MD OR "SOMEONE IN POWER". DAUGHTER REQUESTING PATIENT BE ADMITTED WITHOUT LAB RESULTS.
[2016-09-02] MEDS ORDERED: INSULIN REGULAR, HUMAN 100 UNITS/ML, 10 ML VIAL (novoLIN R) SUBCUT PRN ×2 (02:30→08:30)
--- NOTE | 2016-09-02 02:30 | NUR ---
Stool sample sent to lab.
--- NOTE | 2016-09-02 02:41 | NUR ---
ADMIT NOTE Received pt from ER to the floor with a diagnosis of C.DIFF, COLITIS. Admission process initiated. patient oriented to pain management, safety and call light-teach back done.
--- NOTE | 2016-09-02 02:45 | NUR ---
Patient will be admitted to care of Dr. Hayden. Admitted to Med Surg unit. Will go to room 134A. Summary report printed. Report given to admitting RN.
[2016-09-02 02:49] VITALS: BP 127/57; PULSE 88; RESP 18; TEMP 96.9; O2SAT 92
--- NOTE | 2016-09-02 02:50 | NUR ---
INITIAL NOTES: TAMAZIGHT SPEAKING PATIENT BUT UNDERSTANDS AND SPEAKS FEW CZECH IN BED AWAKE ORIENTED X3.FORGETFUL OF TIME,DOES NOT KNOW SPECIFIC HOSPITAL.DAUGHTER AT BEDSIDE. ORIENTED DAUGHTER ON ROOM SET UP, ROUTINE ADMISSIONS ,CALL AND PHONE SYSTEM,PLAN OF CARE THEN EXPLAINS ALL TO PATIENT WITH UNDERSTANDING AND RETURN DEMONSTRATION RESIDENT SURGEON SYSTEM. SALINE LOCK TO LEFT WRIST AREA. DAUGHTER EMPHASIZED THAT NO BP /BLOOD DRAW TO RIGHT EXTREMITY AND IF PATIENT CALLS , STAFF HAS TO SEE PATIENT JIM ,PATIENT CAN NOT TALK LOUD TO BE HEARD. PATIENT REFUSES BED HUDSON TO VOID OR BM. NEED TO GET UP TO USE BEDSIDE COMMODE.PHYSICAL ASSESSMENT DONE. KEPT PATIENT WARM AND COMFORTABLE WITH WARM BLANKET. HAS TO USE GLOVES TO RIGHT HAND AT ALL TIMES.BSC PROVIDED.NO LABS DRAWN FROM ER ,DAUGHTER REFUSE DUE TO MULTIPLE IV ATTEMPTS.VITAL SIGNS STABLE.WILL MONITOR CLOSELY.
[2016-09-02] MEDS: 0.45% NACL 1,000 ML IV SCH (03:58)
--- NOTE | 2016-09-02 04:00 | NUR ---
ALL DUE MEDS PO/IV GIVEN AND STARTED. REFUSE ACCU CHECKS TAKEN. STATED MY BLOOD SUGAR AR GOOD. DRINKS WATER WELL. WILL CONVINCE AGAIN LATER.
[2016-09-02 04:47] VITALS: BP 121/57; PULSE 83; RESP 18; TEMP 98.6; O2SAT 93
--- NOTE | 2016-09-02 05:15 | NUR ---
BOWEL MOVEMENT: ASSISTED TO BEDSIDE COMMODE . HAD LOOSE ,FOWL MOD. AMT. WAS IN BSC FOR 20MINS.
[2016-09-02] MEDS: VANCOMYCIN HCL 250 MG CAPSULE PO SCH ×3 (05:34→17:30)
--- NOTE | 2016-09-02 06:00 | NUR ---
CONTINUE TO REFUSE ACCU CHECK TO BE DONE. WILL INFORM AM RN .
--- NOTE | 2016-09-02 06:50 | NUR ---
CLOSING: ISOLATION/ FALL / ASPIRATION PRECAUTIONS IN PROGRESS. NO ACUTE DISTRESS.IV PATENT. WILL GIVE REPORT NEED OF BREATHING TX AND DVT PROPHYLAXSIS. REFUSE BLOOD DRAW THIS TIME.
--- NOTE | 2016-09-02 07:40 | NUR ---
Nutrition Update Elgin Scale 16 noted. Pt admitted for C. diff colitis. Diet: CCHO and mechanical soft (2 active, separate diet orders) BMI: 26.6 kg/m2 RD to follow per nutrition care standards.
--- NOTE | 2016-09-02 07:58 | NUR ---
AM ROUNDS PATIENT RESTING IN BED, AWAKE, ALERT AND ORIENTED X3, REORIENTED TO TIME, ASSESSMENT COMPLETE, PATIENT REFUSED NURSE TO TAKE VITAL SIGNS AT THIS TIME, EXPLAINED TO THE PATIENT THE NEED FOR VITAL SIGNS, PATIENT STILL REFUSED, WILL FOLLOW UP, EDUCATED THE PATIENT DRY HOUSE ATTENDANT LIGHT SYSTEM AND TO CALL FOR ANY ASSISTANCE, PATIENT VERBALIZED UNDERSTANDING AT THIS TIME, BED ALARM ON, BED CLOSE TO NURSE'S STATION, ISOLATION, FALL AND ASPIRATION PRECAUTIONS IN PLACE, CALL LIGHT PLACED IN THE PATIENT'S HAND.
[2016-09-02 08:00] VITALS: BP 128/76; PULSE 86; RESP 16; TEMP 98.6; O2SAT 96
[2016-09-02 08:39] LABS: BASOPHILS % (AUTO) 0.1 % (0.0-2.0); EOSINOPHILS % (AUTO) 0.5 % (0.0-4.0); HEMATOCRIT 27.3 % (36-48); HEMOGLOBIN 8.8 g/dL (12.0-16.0); LYMPHOCYTES % (AUTO) 18.5 % (20.5-51.5); MEAN CORPUSCULAR HEMOGLOBIN 27 pg (27-31); MEAN CORPUSCULAR HGB CONC 32 % (32-36); MEAN CORPUSCULAR VOLUME 85 fL (79.0-98.0); MONOCYTES # (AUTO) 0.4 K/uL (0.0-1.0); MONOCYTES % (AUTO) 7.4 % (1.7-9.3); NEUTROPHILS # (AUTO) 4.1 K/uL (1.8-7.7); NEUTROPHILS % (AUTO) 73.5 % (40.0-70.0); PLATELET COUNT (AUTO) 183 K/uL (130-430); RED BLOOD CELL COUNT(AUTO) 3.22 MIL/uL (4.2-6.2); RED CELL DISTRIBUTION WIDTH 17.5 % (9.0-15.0); WHITE BLOOD COUNT (AUTO) 5.5 K/uL (4.8-10.8)
[2016-09-02 09:13] LABS: INR 1.2 (0.8-1.2); PROTHROMBIN TIME 13.1 SECS (9.5-12.5)
[2016-09-02 09:30] LABS: ANION GAP 8 (5-15); CALCIUM 8.6 mg/dL (8.4-11.0); CHLORIDE 109 mmol/L (98-107); CREATININE 1.42 mg/dL (0.55-1.30); GLUCOSE 120 mg/dL (70-99); POTASSIUM 3.7 mmol/L (3.5-5.1); SODIUM SERUM 139 mmol/L (136-145); UREA NITROGEN, BLOOD 35 mg/dL (8-21)
[2016-09-02 09:35] LABS: ALANINE AMINOTRANSFERASE 10 U/L (12-78); ALBUMIN 2.7 g/dL (3.4-4.8); ASPARTATE AMINOTRANSFERASE 10 U/L (10-37); TOTAL BILIRUBIN 0.5 mg/dL (0.0-1.0); TOTAL PROTEIN, SERUM 5.8 g/dL (6.4-8.3)
[2016-09-02] MEDS: RIFAXIMIN 550 MG TABLET PO SCH ×2 (09:45→20:24)
[2016-09-02] MEDS ORDERED: DEXTROSE 50%-WATER 50 ML DISP.SYRIN IVP PRN ×2 (09:45)
[2016-09-02] MEDS: FUROSEMIDE 40 MG TABLET PO SCH (09:45)
[2016-09-02] MEDS: levETIRAcetam 500 MG TABLET PO SCH ×2 (09:45→20:24)
[2016-09-02] MEDS ORDERED: GLUCOSE 15 GM GEL (in 37.5 GM TUBE) PO PRN ×2 (09:45)
--- NOTE | 2016-09-02 09:45 | NUR ---
RN ROUNDS PATIENT RESTING IN BED, AWAKE, DENIES PAIN, EDUCATED ON MEDICATIONS, PATIENT SOMEWHAT VERBALIZED UNDERSTANDING AT THIS TIME, TOLERATED WELL, ASSISTED THE PATIENT TO THE BEDSIDE COMMODE, CALL LIGHT PLACED IN THE PATIENT'S HAND, FALL PRECAUTIONS IN PLACE, BED IN LOWEST POSITION, BED NEAR NURSE'S STATION.
[2016-09-02] MEDS: ATORVASTATIN 10 MG TABLET PO SCH (09:46)
[2016-09-02] MEDS: LISINOPRIL 10 MG TABLET (PRINIVIL) PO SCH (09:46)
[2016-09-02] MEDS: POTASSIUM CHLORIDE 20 MEQ TAB.PRT.SR PO SCH (09:46)
[2016-09-02] MEDS: CHOLECALCIFEROL (VITAMIN D3) 2,000 UNIT TABLET PO SCH ×2 (09:46→20:24)
[2016-09-02] MEDS: APIXABAN 2.5 MG TABLET PO SCH ×2 (09:46→20:24)
[2016-09-02] MEDS: PENTOXIFYLLINE 400 MG TABLET.SA (TRENtal) PO SCH ×2 (09:46→20:24)
[2016-09-02] MEDS: METOPROLOL TARTRATE 50 MG TABLET PO SCH ×2 (09:47→20:25)
[2016-09-02 11:52] VITALS: BP 99/48; PULSE 85; RESP 19; TEMP 97; O2SAT 93
[2016-09-02] MEDS: HYDROcodone/ACETAMIN 5-325 MG TAB (NORCO/ VICODIN) PO PRN ×2 (12:21→20:39)
--- NOTE | 2016-09-02 12:21 | NUR ---
PAIN MEDICATION AT THIS TIME, PATIENT COMPLAINING OF HER HAND HURTING, PATIENT TOLERATED MEDICATION ADMINISTRATION WELL, NO OTHER NEEDS AT THIS TIME, BED IN LOWEST POSITION, THREE SIDE RAILS UP, BED ALARM ON, CALL LIGHT IN THE PATIENT'S HAND, FALL AND ASPIRATION PRECAUTIONS IN PLACE.
--- NOTE | 2016-09-02 12:42 | NUR ---
IV RE-INSERTION: Complaining of pain to IV site. Restarted on RIGHT FOREARM. Successful after 1 attempts. Resumed current IVF of 1/2 NS and regulated @ 50 per hour. Will observe for any signs of infiltration. Addendum: 09/02/16 at 1243 by Chuck Esteban RN CORRECT TIME: 1130
--- NOTE | 2016-09-02 12:42 | NUR ---
PAGED DR WILLIAMSON REGARDING PATIENT'S HOME MEDICATION, PER PATIENT DAUGHTER REQUEST.
--- NOTE | 2016-09-02 12:45 | NUR ---
DR WILLIAMSON CALL BACK STATED OK TO CONTINUE HOME VASCULERA, PATIENT FAMILY TO BRING MEDICATION FROM HOME
--- NOTE | 2016-09-02 12:50 | NUR ---
DISCHARGE PLANNING Patient has been on home health with [phone]
--- NOTE | 2016-09-02 14:25 | NUR ---
RN ROUNDS PATIENT RESTING IN BED, AWAKE, ASSISTED TO BEDSIDE COMMODE, CLEANED PATIENT AND RETURNED TO BED, HAD A BOWEL MOVEMENT CONSISTING OF LIQUID/STOOL.
--- NOTE | 2016-09-02 14:25 | NUR ---
RN ROUNDS BED IN LOWEST POSITION, THREE SIDE RAILS UP, BED ALARM ON, BED CLOSE TO NURSE'S STATION, FALL PRECAUTIONS IN PLACE, CALL LIGHT NEXT TO THE PATIENT'S HAND.
--- NOTE | 2016-09-02 14:36 | NUR ---
DR WILLIAMSON PAGED REGARDING POSITIVE C DIFF RESULTS AND MEDICATION CLARIFICATION.
--- NOTE | 2016-09-02 14:50 | NUR ---
DR WILLIAMSON CALL BACK STATED HE WILL COME TO SEE THE PATIENT.
--- NOTE | 2016-09-02 15:01 | NUR ---
ELGIN SCALE EVALUATION: Patient evaluated for a low Elgin score of 16. Patient was awake, alert, oriented, and received in a Natalie bed with an IsoFlex PRISCILLA mattress. Patient is able to turn in bed independently. Skin is fair (-); Perineal and buttocks areas have erythema from IAD. Recommend encourage and assist patient as needed with repositioning every 2 hours with pillow support, and off-load pressure areas with pillows for pressure re-distribution. Elevate, off-load and float bilateral heels with pillows. Use moisture barrier cream on buttocks and other moisture susceptible areas QID and as needed for soiling. Perform skin care and monitor skin integrity Q shift. Place patient on low air-loss therapy.
[2016-09-02 15:36] VITALS: BP 113/57; PULSE 87; RESP 19; TEMP 97.6; O2SAT 93
--- NOTE | 2016-09-02 16:02 | NUR ---
RN ROUNDS PATIENT RESTING IN BED, EYES CLOSED, BREATHING IS EVEN AND UNLABORED, NO SIGNS OF DISTRESS, BED IN LOWEST POSITION, THREE SIDE RAILS UP, BED ALARM ON, CALL LIGHT NEXT TO THE PATIENT'S HAND.
--- NOTE | 2016-09-02 18:08 | NUR ---
DR WILLIAMSON INFORMED OF FAMILY REQUEST FOR MORPHINE IV AND HEATING PAD, WILL FOLLOW UP WITH ANY NEW ORDERS.
[2016-09-02] MEDS ORDERED: LACTOBACILLUS RHAMNOSUS GG 1 CAP CAPSULE PO ONE (18:15)
[2016-09-02] MEDS ORDERED: MORPHINE SULFATE 15 MG TABLET.SA PO ONE (18:15)
--- NOTE | 2016-09-02 18:29 | NUR ---
Consultation Paged Reason for consultation: C-diff Was consult called: Yes Person who was called: Rebecca Consulting Physician: Charity Teran Bagman/Woman Specialty: ID Bagman/Woman Ordered by: Aurora Lewis
--- NOTE | 2016-09-02 18:36 | NUR ---
CLOSING NOTES PATIENT RESTING IN BED, FAMILY AT BEDSIDE, EDUCATED ON NEW MEDICATIONS AND POTENTIAL SIDE EFFECTS, PATIENT AND FAMILY VERBALIZED UNDERSTANDING AT THIS TIME, NO OTHER NEEDS AT THIS TIME, BED IN LOWEST POSITION, TWO SIDE RAILS UP, BED ALARM ON, BED CLOSE TO NURSE'S STATION, FALL AND ASPIRATION PRECAUTIONS IN PLACE, WILL ENDORSE REPORT TO NOC SHIFT NURSE.
--- NOTE | 2016-09-02 20:00 | NUR ---
Initial Notes Patient alert and oriented, able to make needs known. Patient c/o pain, will medicate with pain medicine. No SOB noted. Denies nausea/vomiting at this time. Patient repositioned in bed. IV site patent, flushes well, infusing fluids as ordered. Goal of pain management, Gi stability and safety this shift. Call light within reach. Will continue to monitor.
[2016-09-02 20:20] VITALS: BP 105/51; PULSE 80; RESP 19; TEMP 97.7; O2SAT 94
[2016-09-02] MEDS: TEMAZEPAM 15 MG CAPSULE PO SCH (20:25)
--- NOTE | 2016-09-02 22:20 | NUR ---
Notes Patient sleeping at this time. No SOB noted. No s/s of pain noted. IV site patent, flushes well, infusing fluids as ordered. Call light within reach. Will continue to monitor.
[2016-09-03] VITALS (7 sets, daily range): BP systolic 93–107; BP diastolic 44–58; PULSE 76–89; RESP 16–19; TEMP 97.1–98.1; O2SAT 93–98
--- NOTE | 2016-09-03 00:15 | NUR ---
Notes Patient sleeping at this time. No s/s of pain or discomfort noted. Afebrile. IV site patent, flushes well. Safety precaution maintained. Call light within reach. Will continue to monitor.
[2016-09-03] MEDS: 0.45% NACL 1,000 ML IV SCH ×2 (01:29→17:19)
[2016-09-03] MEDS: VANCOMYCIN HCL 250 MG CAPSULE PO SCH ×4 (01:29→17:13)
--- NOTE | 2016-09-03 06:32 | NUR ---
Closing Notes Patient denies pain at this time. No SOB noted. Denies nausea/vomiting at this time. Patient repositioned in bed. IV site patent, flushes well, infusing fluids as ordered. Goal of pain management, Gi stability and safety met. Call light within reach. Will continue to monitor.
--- NOTE | 2016-09-03 07:35 | NUR ---
INITIAL NOTE RECEIVED PATIENT FROM RAILROAD BRAKEMAN NURSE, PATIENT IS RESTING IN BED, NO SIGNS OF DISTRESS, NO COMPLAINTS OF PAIN AT THIS TIME, ASSESSMENT COMPLETE, PATIENT HAS IV ACCESS ON RIGHT FOREARM GAUGE 24 WITH FLUIDS RUNNING, NO SIGNS OF INFILTRATION, PATIENT IS CURRENTLY ON 2L OF O2 SATING AT 97%. INSTRUCTED PATIENT TO USE CALL MCDERMOTT IF ASSISTANCE IS NEEDED, PATIENT VERBALIZED UNDERSTANDING, CALL MCDERMOTT LEFT NEAR PATIENT'S HAND, BED IN LOWEST POSITION, BED ALARM ON, THREE SIDE RAILS UP, FALL AND SEIZURE PRECAUTIONS IN PLACE, WILL CONTINUE TO MONITOR PATIENT.
[2016-09-03] MEDS: RIFAXIMIN 550 MG TABLET PO SCH ×2 (08:49→21:20)
[2016-09-03] MEDS: ATORVASTATIN 10 MG TABLET PO SCH (08:50)
[2016-09-03] MEDS: LACTOBACILLUS RHAMNOSUS GG 1 CAP CAPSULE PO SCH ×2 (08:50→21:20)
[2016-09-03] MEDS: APIXABAN 2.5 MG TABLET PO SCH ×2 (08:50→21:20)
[2016-09-03] MEDS: PENTOXIFYLLINE 400 MG TABLET.SA (TRENtal) PO SCH ×2 (08:50→21:22)
[2016-09-03] MEDS: POTASSIUM CHLORIDE 20 MEQ TAB.PRT.SR PO SCH (08:50)
[2016-09-03] MEDS: levETIRAcetam 500 MG TABLET PO SCH ×2 (08:50→21:19)
[2016-09-03] MEDS: CHOLECALCIFEROL (VITAMIN D3) 2,000 UNIT TABLET PO SCH ×2 (08:50→21:19)
[2016-09-03] MEDS: MORPHINE SULFATE 15 MG TABLET.SA PO SCH ×2 (08:54→21:22)
[2016-09-03] MEDS: FUROSEMIDE 40 MG TABLET PO SCH (08:54)
[2016-09-03] MEDS: LISINOPRIL 10 MG TABLET (PRINIVIL) PO SCH (08:55)
--- NOTE | 2016-09-03 08:55 | NUR ---
MEDICATIONS MORNING MEDICATIONS GIVEN TO PATIENT, EDUCATED PATIENT ON POTENTIAL SIDE EFFECTS OF MEDICATIONS, PATIENT VERBALIZED UNDERSTANDING, INSTRUCTED PATIENT TO USE CALL MCDERMOTT IF ASSISTANCE IS NEEDED, PATIENT VERBALIZED UNDERSTANDING, CALL MCDERMOTT LEFT WITHIN REACH OF PATIENT'S HAND, BED IN LOWEST POSITION, BED ALARM ON, THREE SIDE RAILS UP, FALL PRECAUTIONS IN PLACE, WILL CONTINUE TO MONITOR PATIENT
[2016-09-03] MEDS: METOPROLOL TARTRATE 50 MG TABLET PO SCH ×2 (08:56→21:00)
--- NOTE | 2016-09-03 10:45 | NUR ---
RN ROUNDS PATIENT IS RESTING IN BED WITH EYES CLOSED, NO SIGNS OF DISTRESS, PATIENT'S BREATHING IS EVEN AND UNLABORED, CALL MCDERMOTT LEFT BY PATIENT'S HAND, BED IN LOWEST POSITION, BED ALARM ON, THREE SIDE RAILS UP, FALL PRECAUTIONS IN PLACE, WILL CONTINUE TO MONITOR PATIENT.
--- NOTE | 2016-09-03 12:00 | NUR ---
RN ROUNDS PATIENT IS RESTING IN BED, NO SIGNS OF DISTRESS, GLUCOSE CHECKED, RESULTS 101, NO NEED FOR INSULIN AT THIS TIME, WILL CONTINUE TO MONITOR PATIENT, FALL PRECAUTIONS IN PLACE.
--- NOTE | 2016-09-03 14:06 | NUR ---
RN ROUNDS PATIENT IS RESTING IN BED, NO SIGNS OF DISTRESS, PATIENT STATED SHE WAS HAVING PAIN IN HANDS, PRN MEDICATION GIVEN WILL REASSESS TO CHECK EFFECTIVENESS, WILL CONTINUE TO MONITOR PATIENT, FALL PRECAUTIONS IN PLACE.
[2016-09-03] MEDS: HYDROcodone/ACETAMIN 5-325 MG TAB (NORCO/ VICODIN) PO PRN ×2 (14:07→18:46)
--- NOTE | 2016-09-03 16:15 | NUR ---
RN ROUNDS PATIENT IS RESTING IN BED, NO SIGNS OF DISTRESS, ASSISTED PATIENT TO BEDSIDE COMMODE, PATIENT TOLERATED WELL, WILL CONTINUE TO MONITOR PATIENT, FALL PRECAUTIONS IN PLACE.
--- NOTE | 2016-09-03 18:30 | NUR ---
CLOSING NOTES PATIENT IS CURRENTLY RESTING IN BED, SON IS AT BEDSIDE, NO COMPLAINTS OF PAIN, NO SIGNS OF DISTRESS NOTED, ALL NEEDS MET, WILL ENDORSE PATIENT TO COMMODITIES TRADER NURSE, BED LEFT IN LOWEST POSITION, THREE SIDE RAILS UP, BED ALARM, CALL MCDERMOTT WITHIN REACH OF PATIENT'S HAND, FALL PRECAUTIONS IN PLACE.
--- NOTE | 2016-09-03 19:37 | NUR ---
Initial PM Note Pt was received lying in bed fully awake, alert and oriented x4. Family members are visiting at the bedside. Speech is clear and pt is able to make her needs known. No c/o pain or discomfort. No seizure activity or respiratory distress noted. Oxygen is on at 2l/min per NC. Skin is warm and dry to touch. No signs or symptoms of hypoglycemia or hyperglycemia noted. IVF of 1/2 NS is in fusing well in RFA at 50ml/hr and no signs of infiltration noted at the IV site. Fall precautions are in place. Pt was instructed to call for assistance as needed and pt verbalized understanding. Call light is with pt. Bed is in the lowest and locked positions. Will continue to monitor pt.
--- NOTE | 2016-09-03 20:46 | NUR ---
Lt Shoulder Pain Per family's request, new order obtained from Dr. Hayden for Lidoderm patch due to left shoulder pain.
[2016-09-03] MEDS: TEMAZEPAM 15 MG CAPSULE PO SCH (21:20)
[2016-09-03] MEDS: LIDOCAINE PATCH 5% 1 EA TP SCH (21:22)
[2016-09-03] MEDS: metroNIDAZOLE 250 mg/NS 50 ML IV SCH (21:23)
--- NOTE | 2016-09-03 23:00 | NUR ---
Rounds Pt is sleeping comfortably in bed. No facial grimacing or difficulty breathing noted. Call light is with pt.
[2016-09-04] VITALS (7 sets, daily range): BP systolic 87–132; BP diastolic 44–74; PULSE 82–98; RESP 16–20; TEMP 97.4–98.6; O2SAT 92–98
[2016-09-04] MEDS: VANCOMYCIN HCL 250 MG CAPSULE PO SCH ×5 (00:30→23:25)
--- NOTE | 2016-09-04 01:30 | NUR ---
Rounds Pt is sleeping comfortably in bed. Fall and safety precautions are in place.
--- NOTE | 2016-09-04 04:30 | NUR ---
Rounds Pt is sleeping comfortably in bed and no resp distress noted. IVF is infusing well.
[2016-09-04] MEDS: metroNIDAZOLE 250 mg/NS 50 ML IV SCH ×3 (05:52→21:05)
[2016-09-04] MEDS: HYDROcodone/ACETAMIN 5-325 MG TAB (NORCO/ VICODIN) PO PRN ×2 (05:52→12:03)
--- NOTE | 2016-09-04 05:52 | NUR ---
Pain Medication Elsa 5/325mg 1 tablet was given po for c/o lt shoulder pain with some relief.
--- NOTE | 2016-09-04 06:55 | NUR ---
Closing Note Pt is awake and resting comfortably in bed. All pt's needs were attended to. No fall or injury noted this shift. Will endorse to day shift nurse.
[2016-09-04 07:08] LABS: ANION GAP 8 (5-15); CALCIUM 8.7 mg/dL (8.4-11.0); CHLORIDE 105 mmol/L (98-107); CREATININE 1.83 mg/dL (0.55-1.30); GLUCOSE 95 mg/dL (70-99); POTASSIUM 4.2 mmol/L (3.5-5.1); SODIUM SERUM 134 mmol/L (136-145); UREA NITROGEN, BLOOD 39 mg/dL (8-21)
[2016-09-04 07:09] LABS: BASOPHILS % (AUTO) 0.1 % (0.0-2.0); EOSINOPHILS % (AUTO) 0.6 % (0.0-4.0); HEMATOCRIT 27.1 % (36-48); HEMOGLOBIN 9.1 g/dL (12.0-16.0); LYMPHOCYTES % (AUTO) 20.2 % (20.5-51.5); MEAN CORPUSCULAR HEMOGLOBIN 28 pg (27-31); MEAN CORPUSCULAR HGB CONC 33 % (32-36); MEAN CORPUSCULAR VOLUME 84 fL (79.0-98.0); MONOCYTES # (AUTO) 0.4 K/uL (0.0-1.0); MONOCYTES % (AUTO) 8.6 % (1.7-9.3); NEUTROPHILS # (AUTO) 3.7 K/uL (1.8-7.7); NEUTROPHILS % (AUTO) 70.5 % (40.0-70.0); PLATELET COUNT (AUTO) 197 K/uL (130-430); RED BLOOD CELL COUNT(AUTO) 3.24 MIL/uL (4.2-6.2); RED CELL DISTRIBUTION WIDTH 17.2 % (9.0-15.0); WHITE BLOOD COUNT (AUTO) 5.1 K/uL (4.8-10.8)
--- NOTE | 2016-09-04 07:45 | NUR ---
INITIAL NOTE PATIENT IS RESTING IN BED, NO SIGNS OF DISTRESS, NO COMPLAINTS OF PAIN AT THIS TIME, ASSESSMENT COMPLETE, IV ACCESS IS CURRENTLY ON RIGHT FOREARM WITH FLUIDS INFUSING, NO SIGNS OF INFILTRATION, INSTRUCTED PATIENT TO USE CALL MCDERMOTT IF ASSISTANCE IS NEEDED, PATIENT VERBALIZED UNDERSTANDING, CALL MCDERMOTT LEFT IN PATIENT'S HAND, BED IN LOWEST POSITION, BED ALARM ON, THREE SIDE RAILS UP, FALL AND SEIZURE PRECAUTIONS IN PLACE, WILL CONTINUE TO MONITOR PATIENT.
[2016-09-04] MEDS: METOPROLOL TARTRATE 50 MG TABLET PO SCH ×2 (09:00→21:00)
[2016-09-04] MEDS: FUROSEMIDE 40 MG TABLET PO SCH (09:00)
[2016-09-04] MEDS: LISINOPRIL 10 MG TABLET (PRINIVIL) PO SCH (09:00)
[2016-09-04] MEDS: PENTOXIFYLLINE 400 MG TABLET.SA (TRENtal) PO SCH ×2 (09:16→20:49)
[2016-09-04] MEDS: LACTOBACILLUS RHAMNOSUS GG 1 CAP CAPSULE PO SCH ×2 (09:16→20:49)
[2016-09-04] MEDS: POTASSIUM CHLORIDE 20 MEQ TAB.PRT.SR PO SCH (09:16)
[2016-09-04] MEDS: levETIRAcetam 500 MG TABLET PO SCH ×2 (09:16→20:49)
[2016-09-04] MEDS: ATORVASTATIN 10 MG TABLET PO SCH (09:16)
[2016-09-04] MEDS: RIFAXIMIN 550 MG TABLET PO SCH ×2 (09:16→20:48)
[2016-09-04] MEDS: APIXABAN 2.5 MG TABLET PO SCH ×2 (09:17→20:48)
[2016-09-04] MEDS: LIDOCAINE PATCH 5% 1 EA TP SCH ×2 (09:18→21:05)
[2016-09-04] MEDS: CHOLECALCIFEROL (VITAMIN D3) 2,000 UNIT TABLET PO SCH ×2 (09:18→20:50)
[2016-09-04] MEDS: MORPHINE SULFATE 15 MG TABLET.SA PO SCH (09:18)
--- NOTE | 2016-09-04 09:30 | NUR ---
MEDICATIONS PATIENT WAS GIVEN MORNING MEDICATIONS, REEDUCATED PATIENT ON REASON FOR MEDICATIONS AND POTENTIAL SIDE EFFECTS, PATIENT VERBALIZED UNDERSTANDING, NO OTHER NEEDS AT THIS TIME, CALL MCDERMOTT LEFT WITHIN REACH OF PATIENT'S HAND, BED IN LOWEST POSITION, TWO SIDE RAILS UP, BED ALARM ON, FALL PRECAUTIONS IN PLACE, WILL CONTINUE TO MONITOR PATIENT.
--- NOTE | 2016-09-04 11:35 | NUR ---
RN ROUNDS patient is currently resting in bed, gave patient warm packs to help relieve pain in hands, will continue to monitor patient, no other needs at this time, fall precautions in place, call caro left next to patient's hand.
[2016-09-04] MEDS: 0.45% NACL 1,000 ML IV SCH (12:05)
--- NOTE | 2016-09-04 12:05 | NUR ---
RN ROUNDS PATIENT WAS GIVEN PRN PAIN MEDICATION TO HELP RELIEVE PAIN IN HANDS, WILL REASSESS PATIENT TO SEE EFFECTIVENESS, NO OTHER NEEDS AT THIS TIME, CALL MCDERMOTT WITHIN REACH OF PATIENT, FALL AND SEIZURE PRECAUTIONS IN PLACE, WILL CONTINUE TO MONITOR PATIENT.
--- NOTE | 2016-09-04 14:24 | NUR ---
RN ROUNDS PATIENT IS CURRENTLY RESTING IN BED, PATIENT STATES THE PAIN IN HER HANDS CAME BACK PRN MEDICATION ALREADY GIVEN, GAVE PATIENT WARM PACKS TO DECREASE PAIN, WILL CONTINUE TO MONITOR, FALL AND SEIZURE PRECAUTIONS IN PLACE.
[2016-09-04] MEDS ORDERED: LevALBUTEROL HCL 1.25 MG/0.5 ML *CONC.* VIAL.NEB (XOPENEX CONC.) INH PRN (15:15)
[2016-09-04] MEDS: HYDROmorphone 2 MG TAB PO PRN (15:52)
--- NOTE | 2016-09-04 15:59 | NUR ---
RN ROUNDS PATIENT WAS GIVEN PRN PAIN MEDICATION FOR PAIN IN SHOULDER, WILL REASSESS PATIENT'S PAIN, DAUGHTER IS AT BEDSIDE, NO OTHER NEEDS AT THIS TIME, WILL CONTINUE TO MONITOR
--- NOTE | 2016-09-04 17:00 | NUR ---
RN ROUNDS PATIENT IS CURRENTLY LYING IN BED, PATIENT STATES SHE CAN NO LONGER PUSH BUTTON GLUE MAKER BONE MCDERMOTT, CHARGE NURSE INFORMED FOR OTHER OPTIONS, CHANGED CALL MCDERMOTT OUT WITH DIFFERENT CALL MCDERMOTT, INSTRUCTED PATIENT ON HOW TO USE THE SENSITIVE TOUCH CALL MCDERMOTT, PATIENT DEMONSTRATED HOW TO USE CALL MCDERMOTT, CALL MCDERMOTT LEFT NEXT TO PATIENT'S HAND, NO OTHER NEEDS AT THIS TIME, FALL AND SEIZURE PRECAUTIONS IN PLACE, WILL CONTINUE TO MONITOR PATIENT.
--- NOTE | 2016-09-04 18:30 | NUR ---
CLOSING NOTE PATIENT IS CURRENTLY RESTING IN BED WITH EYES CLOSED, NO SIGNS OF DISTRESS, BREATHING IS EVEN AND UNLABORED, ALL NEEDS MET, WILL ENDORSE PATIENT TO NEWS REEL CAMERAMAN NURSE, CALL MCDERMOTT LEFT WITHIN PATIENT'S REACH, BED IN LOWEST POSITION, THREE SIDE RAILS UP, BED ALARM ON, FALL PRECAUTIONS IN PLACE
--- NOTE | 2016-09-04 20:00 | NUR ---
OPENING NOTES PATIENT IS A/OX4. NO SIGNS OF DISTRESS. BREATHING IS NON LABORED. PATIENT HAS NO COMPLAINTS OF PAIN. IV IS PATENT AND SHOWS NO SIGNS OF COMPILATIONS. VITAL SIGNS ARE STABLE. PATIENT INSTRUCTED TO CALL FOR ASSISTANCE. CALL LIGHT IS WITHIN REACH. BED ALARM IS ON. PATIENT REFUSED SEIZURE PADS. PATIENT EDUCATED ON THE IMPORTANCE OF SEIZURE PADS. PATIENT REFUSED. WILL CONTINUE TO MONITOR.
--- NOTE | 2016-09-04 20:45 | NUR ---
PATIENT BLOOD PRESSURE WAS REASSESSED. BLOOD PRESSURE WAS 102/65.
[2016-09-04] MEDS: TEMAZEPAM 15 MG CAPSULE PO SCH (20:58)
--- NOTE | 2016-09-04 22:15 | NUR ---
ROUNDS PATIENT WAS GIVEN WATER TO DRINK.
[2016-09-04] MEDS: LevALBUTEROL HCL 1.25 MG/0.5 ML *CONC.* VIAL.NEB (XOPENEX CONC.) INH SCH (23:35)
--- NOTE | 2016-09-05 00:45 | NUR ---
ROUNDS PATIENT IS IN BED SLEEPING. NO SIGNS OF DISTRESS. BREATHING IS NON LABORED. SAFETY MEASURES ARE IN PLACE. WILL CONTINUE TO MONITOR.
[2016-09-05 02:05] VITALS: BP 140/59; PULSE 100; RESP 19; TEMP 97.6; O2SAT 95
--- NOTE | 2016-09-05 02:29 | NUR ---
ROUNDS PATIENT IS IN BED SLEEPING. NO SIGNS OF DISTRESS. BREATHING IS NON LABORED. CALL LIGHT IS WITHIN REACH. SAFETY MEASURES ARE IN PLACE. WILL CONTINUE TO MONITOR.
[2016-09-05 04:00] VITALS: BP 120/49; PULSE 92; RESP 19; TEMP 97.2; O2SAT 95
--- NOTE | 2016-09-05 04:45 | NUR ---
ROUNDS PATIENT IS IN BED SLEEPING. NO SIGNS OF DISTRESS. BREATHING IS NON LABORED. SAFETY MEASURES ARE IN PLACE. WILL CONTINUE TO MONITOR.
[2016-09-05] MEDS: VANCOMYCIN HCL 250 MG CAPSULE PO SCH ×3 (06:20→17:34)
[2016-09-05] MEDS: metroNIDAZOLE 250 mg/NS 50 ML IV SCH ×3 (06:20→21:49)
[2016-09-05] MEDS: HYDROcodone/ACETAMIN 5-325 MG TAB (NORCO/ VICODIN) PO PRN ×3 (06:25→21:27)
--- NOTE | 2016-09-05 06:50 | NUR ---
CLOSING NOTE PATIENT IS IN BED. NO SIGNS OF DISTRESS. BREATHING IS NON LABORED. IV IS PATENT AND SHOWS NO SIGNS OF COMPLICATIONS. SAFETY MEASURES ARE IN PLACE. WILL ENDORSE TO THE MORNING NURSE.
[2016-09-05] MEDS: LevALBUTEROL HCL 1.25 MG/0.5 ML *CONC.* VIAL.NEB (XOPENEX CONC.) INH SCH ×3 (07:46→23:00)
[2016-09-05 08:00] VITALS: BP 100/37; PULSE 92; RESP 18; TEMP 98.3; O2SAT 100
--- NOTE | 2016-09-05 08:00 | NUR ---
Opening Note: Received report from night nurse. Patient is resting comfortably in bed. No s/s of distress or sob. Patient is awake and alert. Receiving breathing treatment. Vital signs wnl, assessment complete. IV is patent and infusing. Call light in reach, bed in lowest position, and will continue to monitor.
[2016-09-05] MEDS: POTASSIUM CHLORIDE 20 MEQ TAB.PRT.SR PO SCH (08:59)
[2016-09-05] MEDS: PENTOXIFYLLINE 400 MG TABLET.SA (TRENtal) PO SCH ×2 (08:59→21:31)
[2016-09-05] MEDS: HYDROmorphone 2 MG TAB PO PRN ×2 (09:00→17:40)
[2016-09-05] MEDS: LACTOBACILLUS RHAMNOSUS GG 1 CAP CAPSULE PO SCH ×2 (09:00→21:30)
[2016-09-05] MEDS: RIFAXIMIN 550 MG TABLET PO SCH ×2 (09:00→21:32)
[2016-09-05] MEDS: FUROSEMIDE 40 MG TABLET PO SCH (09:00)
[2016-09-05] MEDS: METOPROLOL TARTRATE 50 MG TABLET PO SCH ×2 (09:00→21:00)
[2016-09-05] MEDS: LISINOPRIL 10 MG TABLET (PRINIVIL) PO SCH (09:00)
[2016-09-05] MEDS: levETIRAcetam 500 MG TABLET PO SCH ×2 (09:01→21:31)
[2016-09-05] MEDS: APIXABAN 2.5 MG TABLET PO SCH ×2 (09:01→21:31)
[2016-09-05] MEDS: LIDOCAINE PATCH 5% 1 EA TP SCH ×2 (09:01→21:46)
[2016-09-05] MEDS: CHOLECALCIFEROL (VITAMIN D3) 2,000 UNIT TABLET PO SCH ×2 (09:01→21:32)
[2016-09-05] MEDS: ATORVASTATIN 10 MG TABLET PO SCH (09:01)
--- NOTE | 2016-09-05 09:31 | NUR ---
Nutrition Update Elgin Scale 15 noted. Pt admitted for C. diff colitis. Diet: CCHO and mechanical soft (2 active, separate diet orders) BMI: 26.6 kg/m2 RD to follow per nutrition care standards.
--- NOTE | 2016-09-05 10:00 | NUR ---
NOTE: PATIENT IS RESTING COMFORTABLY IN BED. NO S/S OF DISTRESS OR SOB. PATIENT IS AWAKE AND ALERT. CALL LIGHT IN REACH, BED IN LOWEST POSITION, AND WILL CONTINUE TO MONITOR.
[2016-09-05] MEDS: 0.45% NACL 1,000 ML IV SCH (11:07)
--- NOTE | 2016-09-05 12:00 | NUR ---
NOTE: PATIENT IS RESTING COMFORTABLY IN BED. NO S/S OF DISTRESS OR SOB. PATIENT IS AWAKE AND ALERT. PATIENT C/O OF PAIN, PAIN MEDICATION TO BE ADMINISTERED. CALL LIGHT IN REACH, BED IN LOWEST POSITION, AND WILL CONTINUE TO MONITOR.
[2016-09-05 12:55] VITALS: BP 136/76; PULSE 96; RESP 20; TEMP 97.9; O2SAT 99
[2016-09-05] MEDS: NITROGLYCERIN 0.4 MG TAB.SUBL SL SCH ×2 (14:03→19:23)
--- NOTE | 2016-09-05 14:05 | NUR ---
chest pain patient c/o chest pain. Dr. Hayden paged and Nitro administered. will continue to monitor. Patient with no s/s of distress or sob. vital signs stable.
--- NOTE | 2016-09-05 15:09 | NUR ---
NOTE: THIS MORNING I ATTEMPTED TWO TIMES TO FEED THE PT. PT REFUSED STATING SHE WAS IN TOO MUCH PAIN TO EAT. RN NOTIFIED.
[2016-09-05] MEDS ORDERED: NORFLURANE/HFC 245FA 103.5 ML SPRAY TP ONE (15:30)
--- NOTE | 2016-09-05 16:00 | NUR ---
NOTE: PATIENT IS RESTING COMFORTABLY IN BED. NO S/S OF DISTRESS OR SOB. PATIENT IS AWAKE AND ALERT. FAMILY AT BEDSIDE. PATIENT STATES CHEST PAIN IS RELIVED. CALL LIGHT IN REACH, BED IN LOWEST POSITION, AND WILL CONTINUE TO MONITOR.
[2016-09-05 16:12] VITALS: BP 91/43; PULSE 91; RESP 18; TEMP 97.7; O2SAT 97
--- NOTE | 2016-09-05 18:21 | NUR ---
CLOSING NOTE: PATIENT IS RESTING IN BED. NO S/S OF DISTRESS OR SOB. PATIENT IS AWAKE AND ALERT. FAMILY AT BEDSIDE. CALL LIGHT IN REACH, BED IN LOWEST POSITION, AND WILL GIVE REPORT TO NIGHT NURSE.
[2016-09-05 20:05] VITALS: BP 87/45; PULSE 89; RESP 18; TEMP 98.6; O2SAT 97
--- NOTE | 2016-09-05 20:05 | NUR ---
OPENING ASSESSMENT PATIENT ALERT/ORIENTED X3. YAKUT SPEAKING. DAUGHTER KANDY, HELPING WITH TRANSLATION. MOVES ALL EXTREMITIES WITH GENERALIZED WEAKNESS. STATES LT. HAND PAIN IS 9/10. BEDREST. ISOLATION FOR C-DIFF. ON 02 2L N/C. O2 SAT. IS 97%. NO SOB NOTED @ THIS TIME. HAS IV RFA 24 G WITH .45NS INFUSING @ 50ML/HR. SITE IS CLEAR. CALL LIGHT WITHIN EASY ACCESS. INFORMED PATIENT TO CALL NURSE FOR ALL NEEDS AND NOT TO GET OUT OF BED. BED IN LOW POSITION. SIDE RAILS UP X2. BED ALARM ON.
--- NOTE | 2016-09-05 20:30 | NUR ---
DR. TERI WESTON NOTIFIED PATIENTS BLOOD PRESSURE IS 87/45. NO NEW ORDERS.
--- NOTE | 2016-09-05 21:00 | NUR ---
BLOOD SUGAR 83 DENIES DIZZINESS OR WEAKNESS. GAVE PATIENT APPLE JUICE X2.
[2016-09-05] MEDS: TEMAZEPAM 15 MG CAPSULE PO SCH (21:46)
--- NOTE | 2016-09-05 22:30 | NUR ---
NOTES NO RESPIRATORY DISTRESS NOTED, ON 2L N/C O2.
[2016-09-06 00:07] VITALS: BP 104/54; PULSE 97; RESP 18; TEMP 97.3; O2SAT 98
[2016-09-06] MEDS: VANCOMYCIN HCL 250 MG CAPSULE PO SCH ×4 (00:07→17:46)
--- NOTE | 2016-09-06 00:15 | NUR ---
ROUNDS PATIENT RESTING QUIETLY WITHOUT DISTRESS. RESPIRATORY RATE IS 16BPM.
[2016-09-06] MEDS: HYDROmorphone 2 MG TAB PO PRN ×3 (00:16→10:55)
--- NOTE | 2016-09-06 02:25 | NUR ---
PATIENT RESTING: Patient resting quietly. No acute distress noted. Vital signs within normal range.
[2016-09-06 03:43] VITALS: BP 90/45; PULSE 95; RESP 20; TEMP 97; O2SAT 97
--- NOTE | 2016-09-06 04:10 | NUR ---
NOTES PATIENT IS ASLEEP @ THIS TIME. NO DISTRESS NOTED.
[2016-09-06] MEDS: metroNIDAZOLE 250 mg/NS 50 ML IV SCH ×3 (05:48→22:10)
[2016-09-06] MEDS: 0.45% NACL 1,000 ML IV SCH (05:49)
--- NOTE | 2016-09-06 06:40 | NUR ---
CLOSING NOTES PATIENT UP IN BEDSIDE COMMODE. DENIES DIZZINESS. CONTINUES TO C/O PAIN LT. HAND. HAS IV O.45 @ 100ML/HR RFA 24 G INTACT. CALL LIGHT WITHIN EASY ACCESS. INFORMED PATIENT TO CALL NURSE FOR ALL NEEDS AND NOT TO GET OUT OF BED WITHOUT ASSIST.
[2016-09-06] MEDS: LevALBUTEROL HCL 1.25 MG/0.5 ML *CONC.* VIAL.NEB (XOPENEX CONC.) INH SCH ×3 (07:37→23:00)
[2016-09-06 08:00] VITALS: BP 93/40; PULSE 104; RESP 18; TEMP 98; O2SAT 98
--- NOTE | 2016-09-06 08:00 | NUR ---
RN ROUNDS PATIENT LYING ON BED ALERT ORIENTED X4 ITALIAN SPEAKING, PATIENT WAS EXAMINED. PATIENT WAS GIVEN HER METFORMIN, AND WILL FOLLOW UP WITH HER MED AT 900
[2016-09-06] MEDS: LISINOPRIL 10 MG TABLET (PRINIVIL) PO SCH ×2 (09:00→10:19)
--- NOTE | 2016-09-06 10:00 | NUR ---
RN ROUNDS PATIENT WAS HELPED TO THE BSC FOR VOIDING BY THE CENTRAL STERILE TECH, HER BED WERE MADE AND DAUGHTER IS BY BED SIDE. PATIENT IS PLEASANT HAS BEEN TAUGHT ABOUT HER DISEASE PROCESS AND DIAGNOSIS AND BOTH THE PATIENT AND DAUGHTER VERBALIZED UNDERSTANDING
[2016-09-06] MEDS: RIFAXIMIN 550 MG TABLET PO SCH ×2 (10:17→20:40)
[2016-09-06] MEDS: LACTOBACILLUS RHAMNOSUS GG 1 CAP CAPSULE PO SCH ×2 (10:17→20:40)
[2016-09-06] MEDS: PENTOXIFYLLINE 400 MG TABLET.SA (TRENtal) PO SCH ×2 (10:17→20:40)
[2016-09-06] MEDS: ATORVASTATIN 10 MG TABLET PO SCH (10:18)
[2016-09-06] MEDS: POTASSIUM CHLORIDE 20 MEQ TAB.PRT.SR PO SCH (10:18)
[2016-09-06] MEDS: APIXABAN 2.5 MG TABLET PO SCH ×2 (10:18→20:38)
[2016-09-06] MEDS: FUROSEMIDE 40 MG TABLET PO SCH (10:18)
[2016-09-06] MEDS: CHOLECALCIFEROL (VITAMIN D3) 2,000 UNIT TABLET PO SCH ×2 (10:20→20:39)
[2016-09-06] MEDS: METOPROLOL TARTRATE 50 MG TABLET PO SCH ×2 (10:22→20:42)
[2016-09-06] MEDS: levETIRAcetam 500 MG TABLET PO SCH ×2 (10:25→20:39)
--- NOTE | 2016-09-06 12:00 | NUR ---
RN ROUNDS, PATIENT BLOOD SUGAR WAS MEASURED TO BE 103 THER IS NO COVERAGE. PATIENT HAS A LITTLE PAIN BUT SHE DOESN'T LIKE TO TAKE PAIN MED FOR IT. SINCE IT'S OF ABOUT 2 ON A SCALE OF 1/10 WILL FOLLOW UP
--- NOTE | 2016-09-06 12:36 | NUR ---
DISCHARGE PLANNING DC order to arrange home IV medication. Faxed signed order to [phone] and [phone]. Will follow up. Addendum: 09/06/16 at 1244 by Sierra Pro DP Disregard note above for IV medication, Rx for requested PO medication needs to be given to patient upon discharge. Faxed order to [facility] requesting to resume home health upon patient discharge. ANDRESSA Perez not available for DCP to forward message to him at this time. Addendum: 09/06/16 at 3000 by Sierra Pro DP DC Planning order for [facility] evaluation. Faxed referral to [facility] Ext:[phone] requesting to evaluate patient for short term placement. Will follow up.
[2016-09-06 12:49] VITALS: BP 129/68; PULSE 87; RESP 18; TEMP 97.9; O2SAT 97
--- NOTE | 2016-09-06 14:00 | NUR ---
PHYSICAL THERAPY CO-SIGN The Physical Therapy Progress Notes documented by Chute Feeder have been reviewed. I CONCUR W/QA SOFTWARE TESTER NOTE; CONT PER TX PLAN Reviewed/Co-Signed by: Chelo Armas PT Documentation Done by: MERCED HARRISON QA SOFTWARE TESTER Addendum: 09/06/16 at 1400 by Chelo Armas PT Amended: Links added.
--- NOTE | 2016-09-06 14:00 | NUR ---
RN ROUNDS PATIENT ON THE BEDSIDE COMMODE. NO MAJOR ISSUE, DAUGHTER BY THE BED SIDE. WILL FOLLOW UP
[2016-09-06] MEDS: LIDOCAINE PATCH 5% 1 EA TP SCH ×2 (14:49→21:00)
[2016-09-06 16:10] VITALS: BP 130/70; PULSE 89; RESP 18; TEMP 98; O2SAT 98
--- NOTE | 2016-09-06 16:24 | NUR ---
DC PLANNING Spoke w Dr Hayden earlier today, states plan for dc home w home health possibly tomorrow, to speak w pt's dtr. Later in afternoon spoke w dtr Kayli Murad @ bedside, states she cannot take pt home that she is too weak. States pt normally requires help getting up & sitting back down but is able to ambulate using fww & CGA. Pt lives @ home w & has either caregivers thru [facility], paid caregivers, or one of the dtrs is there to assist. Pt never alone. Wants pt to go to [facility] for rehab, does not want SNF. Called & informed Dr Hayden, gave order for [facility], updated Sierra sc associate financial planner.
--- NOTE | 2016-09-06 17:00 | NUR ---
RN ROUNDS PATIENT BLOOD SUGAR WAS MEASURED TO BE 89 NO COVERAGE. HER ANTIBIOTICS WAS HUNG FOR HER AND PATIENT IS IN A GOOD MOOD, DENIES PAIN OR DISCOMFORT
--- NOTE | 2016-09-06 19:50 | NUR ---
OPENING NOTES PATIENT IS A/OX4. NO SIGNS OF DISTRESS. VITAL SIGNS ARE STABLE. BREATHING IS NON LABORED. O2 IS NOTED AND IS FLOWING. IV IS PATENT AND SHOWS NO SIGNS OF COMPLICATIONS. ARON HIGGINS IS BEDSIDE ASSISTING PATIENT WITH EATING DINNER. PATIENT INSTRUCTED TO CALL FOR ASSISTANCE. WILL CONTINUE TO MONITOR.
[2016-09-06 20:11] VITALS: BP 101/65; PULSE 86; RESP 17; TEMP 98.5; O2SAT 94
[2016-09-06] MEDS: TEMAZEPAM 15 MG CAPSULE PO SCH (20:40)
[2016-09-06] MEDS: HYDROcodone/ACETAMIN 5-325 MG TAB (NORCO/ VICODIN) PO PRN (20:41)
--- NOTE | 2016-09-06 20:45 | NUR ---
ROUNDS PATIENT IS IN BED RESTING. NO SIGNS OF DISTRESS. BREATHING IS NON LABORED. FAMILY IS AT BEDSIDE. WILL CONTINUE TO MONITOR.
--- NOTE | 2016-09-06 22:50 | NUR ---
ROUNDS PATIENT IS ON THE BEDSIDE COMMODE. DAUGHTER IS AT HER SIDE. DAUGHTER STATED THAT SHE'LL ASSIST PATIENT. PATIENT AND FAMILY INSTRUCTED TO CALL FOR ASSISTANCE.
--- NOTE | 2016-09-06 23:19 | NUR ---
PATIENT FOOD PATIENT HAS FOOD IN THE PATIENT REFRIGERATOR. PATIENT STICKER IS ON CONTAINER.
[2016-09-07] VITALS (8 sets, daily range): BP systolic 105–128; BP diastolic 54–72; PULSE 70–117; RESP 16–20; TEMP 98–99.2; O2SAT 91–98; Ht 152.4 cm; Wt 61.7 kg
[2016-09-07] MEDS: VANCOMYCIN HCL 250 MG CAPSULE PO SCH ×5 (00:03→23:49)
--- NOTE | 2016-09-07 01:32 | NUR ---
ROUNDS PATIENT IS IN BED SLEEPING. NO SIGNS OF DISTRESS. BREATHING IS NON LABORED. CALL LIGHT IS WITHIN REACH. BED ALARM IS ON. WILL CONTINUE TO MONITOR.
--- NOTE | 2016-09-07 03:18 | NUR ---
ROUNDS PATIENT IS IN BED SLEEPING. NO SIGNS OF DISTRESS. BREATHING IS NON LABORED. CALL LIGHT IS PATIENT HANDS. BED ALARM IS ON. WILL CONTINUE TO MONITOR.
--- NOTE | 2016-09-07 05:15 | NUR ---
ABDOULAYE CARE RESPONDED TO PATIENT CALL LIGHT. PATIENT STATED THAT SHE HAD TO USE TO COMMODE. PATIENT WAS TOO WEAK TO AMBULATE TO THE COMMODE. PATIENT DIAPER WAS REMOVED AND PATIENT WAS PUT ON A BED HUDSON. PATIENT TOLERATED IT WELL.
[2016-09-07] MEDS: 0.45% NACL 1,000 ML IV SCH ×2 (05:26→22:18)
[2016-09-07] MEDS: HYDROcodone/ACETAMIN 5-325 MG TAB (NORCO/ VICODIN) PO PRN (05:42)
[2016-09-07] MEDS: metroNIDAZOLE 250 mg/NS 50 ML IV SCH ×2 (05:43→13:14)
[2016-09-07 06:53] LABS: BASOPHILS % (AUTO) 0.1 % (0.0-2.0); EOSINOPHILS % (AUTO) 0.6 % (0.0-4.0); HEMATOCRIT 27.1 % (36-48); LYMPHOCYTES # (AUTO) 0.8 K/uL (1.0-5.5); LYMPHOCYTES % (AUTO) 12.6 % (20.5-51.5); MEAN CORPUSCULAR HEMOGLOBIN 28 pg (27-31); MEAN CORPUSCULAR HGB CONC 33 % (32-36); MEAN CORPUSCULAR VOLUME 83 fL (79.0-98.0); MONOCYTES # (AUTO) 0.5 K/uL (0.0-1.0); MONOCYTES % (AUTO) 7.2 % (1.7-9.3); NEUTROPHILS % (AUTO) 79.5 % (40.0-70.0); PLATELET COUNT (AUTO) 200 K/uL (130-430); RED BLOOD CELL COUNT(AUTO) 3.27 MIL/uL (4.2-6.2); RED CELL DISTRIBUTION WIDTH 16.5 % (9.0-15.0); WHITE BLOOD COUNT (AUTO) 6.3 K/uL (4.8-10.8)
--- NOTE | 2016-09-07 06:55 | NUR ---
CLOSING NOTES PATIENT IS IN BED SLEEPING. NO SIGNS OF DISTRESS. BREATHING IS NON LABORED. IV IS PATIENT AND SHOWS NO SIGNS OF COMPLICATIONS. BED ALARM IS ON. CALL LIGHT IS PALM OF PATIENT'S HAD. WILL ENDORSE TO THE MORNING NURSE.
[2016-09-07] MEDS: LevALBUTEROL HCL 1.25 MG/0.5 ML *CONC.* VIAL.NEB (XOPENEX CONC.) INH SCH ×2 (07:20→15:08)
[2016-09-07 07:42] LABS: ANION GAP 11 (5-15); CALCIUM 8.8 mg/dL (8.4-11.0); CHLORIDE 100 mmol/L (98-107); CREATININE 1.88 mg/dL (0.55-1.30); GLUCOSE 97 mg/dL (70-99); POTASSIUM 5.1 mmol/L (3.5-5.1); SODIUM SERUM 130 mmol/L (136-145); UREA NITROGEN, BLOOD 48 mg/dL (8-21)
--- NOTE | 2016-09-07 08:00 | NUR ---
initial notes rec patient asleep but arousbale to stimuli. ivf infusing well on the r forearm. no infiltration noted. both hands with mittens. resp easy and unlabored. hob elevated no acute distress noted. bed in low position and side rails up and locked. call light within reached. fall/ safety precaution instructed. call light within reached.
[2016-09-07] MEDS: LIDOCAINE PATCH 5% 1 EA TP SCH ×2 (08:58→21:46)
[2016-09-07] MEDS: METOPROLOL TARTRATE 50 MG TABLET PO SCH ×2 (08:59→21:00)
[2016-09-07] MEDS: APIXABAN 2.5 MG TABLET PO SCH ×2 (09:00→21:44)
[2016-09-07] MEDS: ATORVASTATIN 10 MG TABLET PO SCH (09:00)
[2016-09-07] MEDS: RIFAXIMIN 550 MG TABLET PO SCH ×2 (09:00→21:45)
[2016-09-07] MEDS: levETIRAcetam 500 MG TABLET PO SCH ×2 (09:01→21:45)
[2016-09-07] MEDS: FUROSEMIDE 40 MG TABLET PO SCH (09:01)
[2016-09-07] MEDS: PENTOXIFYLLINE 400 MG TABLET.SA (TRENtal) PO SCH ×2 (09:01→21:45)
[2016-09-07] MEDS: CHOLECALCIFEROL (VITAMIN D3) 2,000 UNIT TABLET PO SCH ×2 (09:01→21:48)
[2016-09-07] MEDS: LISINOPRIL 10 MG TABLET (PRINIVIL) PO SCH (09:02)
[2016-09-07] MEDS: POTASSIUM CHLORIDE 20 MEQ TAB.PRT.SR PO SCH (09:02)
[2016-09-07] MEDS: LACTOBACILLUS RHAMNOSUS GG 1 CAP CAPSULE PO SCH ×2 (09:03→21:45)
--- NOTE | 2016-09-07 09:27 | NUR ---
rounds pt just finished eating breakfast and with poor appetite. meds given as ordered.
--- NOTE | 2016-09-07 10:33 | NUR ---
DISCHARGE PLANNING Spoke with [facility] liaison who will come and evaluation patient today. Will follow up. Addendum: 09/07/16 at 1141 by Sierra PERRIN Spoke with Lorna mac [facility] patient accepted and will give bed assignment upon discharge order. CM made aware. Any ambulance can be arranged. Placed transportation packet in nurses station. Addendum: 09/07/16 at 1426 by Sierra PERRIN Received call from Lorna mac [facility] who received call from with confirmation patient will be discharged today. Lorna stated facility has bed available for patient discharge and was made aware still pending discharge order. CM made aware. Addendum: 09/07/16 at 1657 by Sierra Pro DP Patient assigned to room 120 at [facility] RN to report [phone] Ext;[phone] bed available after 6pm. Per Charge Nurse Kolb called [facility] ambulance [phone] spoke with [facility] BLS transport on will call. Placed transportation packet in nurses station.
--- NOTE | 2016-09-07 12:00 | NUR ---
rounds daughter came for lunch and help in feeding patient. no hypo hyperglycemic reaction noted. assisted in using the bedpan and voiding freely. daughter came and brought med for patient. dr katz came and stated okay for patient to take vasculera pill.
--- NOTE | 2016-09-07 14:00 | NUR ---
rounds asleep when rounds made. no sob noted.
[2016-09-07] MEDS ORDERED: LORazepam 1 MG TABLET PO ONE (14:15)
--- NOTE | 2016-09-07 15:36 | NUR ---
DC Planning: [facility] accept pt and has bed. Requested nurse Ally and/or nurse Kennedi to call Dr. Hayden for dc order to acute rehab-- RN
--- NOTE | 2016-09-07 18:00 | NUR ---
rounds due meds given and zabrina well. uses the bedpan at intervals . keep patient dry and cleaned. call light within reached.
--- NOTE | 2016-09-07 18:22 | NUR ---
PAGED: I PAGED [facility] I SPOKE WITH SKYLER CAMPA DURING THE DAY [facility] WAS PUT ON WILL CALL I CALLED TO MAKE SURE THEY WILL BE ON TIME SKYLER TOLD ME. YES AMBULANCE WILL BE HERE ON TIME
--- NOTE | 2016-09-07 19:00 | NUR ---
closing notes endorsed that patient will be transferred to [facility] at 2200. daughter agreed and signed acknowledgement transfer. vasculare med given to blanca stiles. iv infiltrated and endorsed to be started as per dr katz.
--- NOTE | 2016-09-07 20:20 | NUR ---
OPENING NOTES PATIENT IS A/OX3. NO SIGNS OF DISTRESS. BREATHING IS NON LABORED. VITAL SIGNS ARE STABLE. IV IS INFILTRATED. WILL INSERT A NEW ONE. O2 IS ON AND IS FLOWING. PATIENT INSTRUCTED TO CALL FOR ASSISTANCE. CALL LIGHT IS IN PATIENT HAND. SAFETY MEASURES ARE IN PLACE. WILL CONTINUE TO MONITOR.
[2016-09-07] MEDS: LORazepam 1 MG TABLET PO SCH (21:46)
--- NOTE | 2016-09-07 22:02 | NUR ---
PAGED: I PAGED @ [phone] TO MAKE SURE [facility] TO FIND OUT WHY ARE NOT HERE YET. I SPOKE WITH TO WELL TESTER SHE TOLD ME AMBULANCE IS RUNNING LATE 30 TO 45 MINUTES LATE
--- NOTE | 2016-09-07 22:29 | NUR ---
[facility] NOT ABLE TO PICK-UP PATIENT MARYAN LEWIS [facility] CALLED AND STATED THAT THEY ARE UNABLE TO SINGLE ENDING MACHINE OPERATOR PATIENT DUE-TO HIGH 911 CALLS. WILL CALL ANOTHER AMBULANCE COMPANY.
--- NOTE | 2016-09-07 22:32 | NUR ---
[facility] CALLED @ 2231 TO LET US KNOW THEY WERE NOT COMING, REASON HIGH VOLUME OF 911 CALLS SKYLER SUPERVISOR LIQUID YEAST IS THE PERSON WHO CALLED
--- NOTE | 2016-09-07 22:37 | NUR ---
ERIN TONG CALLED AT SPOKE WITH [facility]. NO AVAILABLE UNITS [facility] SPOKE WITH [facility]. NO AVAILABLE UNITS.
--- NOTE | 2016-09-07 22:40 | NUR ---
PAGED: [phone] THEY WERE NOT AVAILABLE MY PARTNER ALSO CALLED WE COULD NOT FIND ANY ANY AMBULANCE FOR TONIGHT
--- NOTE | 2016-09-07 22:46 | NUR ---
PATIENT HOME MEDICATION VASCULAR IS WITH PATIENT. WILL BE SENT WITH PATIENT TO [facility].
--- NOTE | 2016-09-07 22:51 | NUR ---
[facility] CALLED AT [phone] SPOKE WITH [facility]. NO BEDS AVAILABLE.
--- NOTE | 2016-09-07 22:55 | NUR ---
NO AMBULANCE AVAILABLE FOR TRANSFER [facility] CALLED PER AMBULANCE HIGH VOLUME OF 911 CALLS AND ARE UNABLE TO PICKUP PATIENT FOR TRANSFER TO [facility]. PAGED TO NOTIFY.
--- NOTE | 2016-09-07 23:05 | NUR ---
SPOKE TO DR. WILLIAMSON SPOKE WITH DR. WILLIAMSON REGARDING AMBULANCE UNABLE TO TRANSFER PATIENT. IS AWARE.
--- NOTE | 2016-09-07 23:05 | NUR ---
PATIENT REFUSED IV INSERTION PREVIOUS IV WAS INFILTRATED. PATIENT EDUCATED ON THE IMPORTANCE OF HAVING AN IV. PATIENT REFUSED. MD AWARE THAT PATIENT REFUSED IV AND THAT PATIENT HAS SCHEDULED FLAGYL. WILL INPUT NEW ORDERS.
--- NOTE | 2016-09-07 23:07 | NUR ---
SPOKE TO [facility] SPOKE TO MARLEN AT [facility] AND INFORMED THAT PATIENT WILL NOT BE ARRIVING TONIGHT DUE TO UNAVAILABILITY OF TRANSPORTATION. INFORMED MARLEN THAT TRANSPORTATION WILL ARRANGED FOR TOMORROW 09-08-16 BETWEEN 9-10-AM. MARLEN STATED " OKAY THAT'S FINE".
[2016-09-07] MEDS ORDERED: metroNIDAZOLE 250 MG TABLET PO ONE (23:30)
--- NOTE | 2016-09-07 23:45 | NUR ---
FAMILY TOOK BELONGINGS HOME FAMILY TOOK ALL BELONGS HOME WITH THE EXCEPTION OF PATIENT'S BLACK CELL PHONE, DENTURES, RED AND WHITE BLANKET, AND RED, [place], BLACK SLIPPERS.
[2016-09-07] MEDS: TEMAZEPAM 15 MG CAPSULE PO SCH (23:49)
[2016-09-08] MEDS: LevALBUTEROL HCL 1.25 MG/0.5 ML *CONC.* VIAL.NEB (XOPENEX CONC.) INH SCH ×2 (00:01→07:41)
--- NOTE | 2016-09-08 00:03 | NUR ---
ROUNDS PATIENT IS IN BED RESTING COMFORTABLY. NO SIGNS OF DISTRESS. BREATHING IS NON LABORED. WILL CONTINUE TO MONITOR. CALL LIGHT IS PATIENT PALM OF HAND. BED ALARM IS ON. WILL CONTINUE TO MONITOR.
[2016-09-08] MEDS: HYDROcodone/ACETAMIN 5-325 MG TAB (NORCO/ VICODIN) PO PRN (00:38)
--- NOTE | 2016-09-08 00:55 | NUR ---
ROUNDS PATIENT IS IN BED SLEEPING NO SIGN OF DISTRESS. BREATHING IS NON LABORED. CALL LIGHT IS PALM OF PATIENT HAND. BED ALARM IS ON. WILL CONTINUE TO MONITOR.
[2016-09-08 01:19] VITALS: BP 102/56; PULSE 97; RESP 19; TEMP 98.1; O2SAT 98
--- NOTE | 2016-09-08 02:25 | NUR ---
ABDOULAYE CARE PATIENT WAS ASSISTED TO THE BEDSIDE COMMODE AND BACK INTO BED. PATIENT IS RESTING COMFORTABLY. SAFETY MEASURES ARE IN PLACE. WILL CONTINUE TO MONITOR.
--- NOTE | 2016-09-08 03:40 | NUR ---
ABDOULAYE CARE PATIENT WAS ASSISTED TO THE BEDSIDE COMMODE AND BACK INTO BED. PATIENT IS RESTING COMFORTABLY. CALL LIGHT IS PALM OF PATIENT HAND. BED ALARM IS ON. WILL CONTINUE TO MONITOR.
--- NOTE | 2016-09-08 03:47 | NUR ---
COMMUNITY SPORTS COORDINATOR BY [facility] I ARRANGE A COMMUNITY SPORTS COORDINATOR WITH [facility] [id number] [facility] I SPOKE WITH FENG RINALDI FROM [facility] [id number] [facility]ICE I GAVE ALL THE INFORMATION NEEDED COMMUNITY SPORTS COORDINATOR TIME IS AT 0010 THIS MORNING 09/08/2016.
[2016-09-08 04:16] VITALS: BP 103/66; PULSE 96; RESP 18; TEMP 97.7; O2SAT 98
--- NOTE | 2016-09-08 05:19 | NUR ---
[facility] TO ACCOUNT SUPPORT SPECIALIST PATIENT FOR TRANSFER AT 10:00 ( [facility]; )
[2016-09-08] MEDS ORDERED: metroNIDAZOLE 250 MG TABLET PO SCH (06:00)
--- NOTE | 2016-09-08 06:20 | NUR ---
PATIENT REFUSED ACCU CHECK. PATIENT EDUCATED ON IMPORTANCE OF ACCU CHECK. PATIENT REFUSED.
--- NOTE | 2016-09-08 06:35 | NUR ---
ABDOULAYE CARE PATIENT WAS ASSISTED TO THE BEDSIDE COMMODE AND BACK INTO BED. PATIENT IS RESTING COMFORTABLY.
[2016-09-08] MEDS: VANCOMYCIN HCL 250 MG CAPSULE PO SCH (06:42)
--- NOTE | 2016-09-08 07:25 | NUR ---
SPOKE TO FAMILY SPOKE TO DAUGHTER MAY AND INFORMED HER THAT TRANSPORTATION WILL BE ARRIVING AROUND 10:00. INFORMED DAUGHTER THAT BELONGINGS AND MEDICATION VASCULAR WILL BE SENT WITH PATIENT. DAUGHTER VERBALIZED UNDERSTANDING.
--- NOTE | 2016-09-08 07:44 | NUR ---
PATIENT HOME MEDICATION VACULAR GIVEN TO MORNING NURSE NIHARIKA.
--- NOTE | 2016-09-08 07:45 | NUR ---
CLOSING NOTES PATIENT IN BED RESTING. NO SIGNS OF DISTRESS. BREATHING IS NON LABORED. PATIENT HAS NO IV ACCESS. PATIENT REFUSED. O2 IS ON AND FLOWING. REPORT GIVEN TO MORNING NURSE.
--- NOTE | 2016-09-08 07:55 | NUR ---
am rounds: patient on contact isolation for c-diff,precaution rendered. report given at bedside. no iv access,pt refused iv reinsertion,md aware. dc transfer today at 10am as ordered.no distress. continue to monitor.
[2016-09-08 08:50] VITALS: BP 116/54; PULSE 94; RESP 18; TEMP 97.3; O2SAT 96
[2016-09-08] MEDS: LACTOBACILLUS RHAMNOSUS GG 1 CAP CAPSULE PO SCH (08:51)
[2016-09-08] MEDS: APIXABAN 2.5 MG TABLET PO SCH (08:53)
[2016-09-08] MEDS: FUROSEMIDE 40 MG TABLET PO SCH (08:53)
[2016-09-08] MEDS: RIFAXIMIN 550 MG TABLET PO SCH (08:54)
[2016-09-08] MEDS: LORazepam 1 MG TABLET PO SCH (08:54)
[2016-09-08] MEDS: ATORVASTATIN 10 MG TABLET PO SCH (08:54)
[2016-09-08] MEDS: CHOLECALCIFEROL (VITAMIN D3) 2,000 UNIT TABLET PO SCH (08:55)
[2016-09-08] MEDS: METOPROLOL TARTRATE 50 MG TABLET PO SCH (08:55)
[2016-09-08] MEDS: levETIRAcetam 500 MG TABLET PO SCH (08:56)
[2016-09-08] MEDS: PENTOXIFYLLINE 400 MG TABLET.SA (TRENtal) PO SCH (08:56)
[2016-09-08] MEDS: LIDOCAINE PATCH 5% 1 EA TP SCH (08:56)
[2016-09-08] MEDS: POTASSIUM CHLORIDE 20 MEQ TAB.PRT.SR PO SCH (09:00)
[2016-09-08] MEDS: LISINOPRIL 10 MG TABLET (PRINIVIL) PO SCH (09:00)
--- NOTE | 2016-09-08 09:05 | NUR ---
DISCHARGE PLANNING Per ANDRESSA [facility] ambulance arranged 10am hot die picker to [facility] and family was made aware since last night. Spoke with Lorna at [facility] who was given ETA and requested RN to call and give report RN to report [phone] Ext:[phone]. ANDRESSA Harley made aware.
--- NOTE | 2016-09-08 09:14 | NUR ---
meds: placed pt on high guardado's position and give some eggs and took a cup of juice and morning meds given as well. well tolerated.
--- NOTE | 2016-09-08 10:42 | NUR ---
report : report given to eligio stiles from [facility]. personal belongings up dated and list of patient's family phone number given to ambulance staff as well.
--- NOTE | 2016-09-08 10:45 | NUR ---
transfer notes: transitional packets and belongings given to ambulance staff. no iv access. spoke with may pt's daughter and aware of the transfer today. ambulance transported patient to [facility] in stable condition.
--- NOTE | 2016-09-08 13:55 | NUR ---
PHYSICAL THERAPY CO-SIGN The Physical Therapy Progress Notes documented by Journeyman Level Acoustic Analyst have been reviewed. Reviewed/Co-Signed by: Kristi Ferreira Documentation Done by:MERCED HARRISON PTA POC REVIEWED W/ BI SOLUTIONS ARCHITECT; PROGRESS NONA. Addendum: 09/08/16 at 1356 by Kristi Ferreira PT Amended: Links added.
== END 2016-09-08 10:34 | DRG 371 ==
LOC: SED 21:07 → SMU 09-02 02:18
PROVIDERS: ADMIT Family Medicine; ATTEND Family Medicine
DX: A04.7 Enterocolitis due to Clostridium difficile (principal); E43 Unspecified severe protein-calorie malnutrition; E11.22 Type 2 diabetes mellitus with diabetic chronic kidney disease; E11.51 Type 2 diabetes mellitus with diabetic peripheral angiopathy without gangrene; I12.9 Hypertensive chronic kidney disease with stage 1 through stage 4 chronic kidney disease, or unspecified chronic kidney disease; E78.5 Hyperlipidemia, unspecified; D64.9 Anemia, unspecified; E86.0 Dehydration; G40.909 Epilepsy, unspecified, not intractable, without status epilepticus; I48.0 Paroxysmal atrial fibrillation; I48.2 Chronic atrial fibrillation; M19.90 Unspecified osteoarthritis, unspecified site; I77.6 Arteritis, unspecified; N18.9 Chronic kidney disease, unspecified; Z78.9 Other specified health status; Z87.440 Personal history of urinary (tract) infections; Z88.6 Allergy status to analgesic agent; Z88.0 Allergy status to penicillin; Z68.26 Body mass index [BMI] 26.0-26.9, adult
CPT/HCPCS: 36415; 80048; 80053; 82962; 83605; 85025; 85610-TC; 87040-TC; 87230-TC; 93005; 94640; 94760; 97110-GP; 97116-GP; 97530-GP; J1815; J3490; J7030